=== PATIENT | female | born 1945 | race Caucasian/White ===

== ENCOUNTER 2017-04-10 20:45 | Inpatient (IN) | payer MEDICARE ==
[~2017-04-10 20:45] MED LIST: ASPIRIN81 MG PO; BYSTOLIC5 MG PO; CATAPRES0.1 MG PO; CELEXA20 MG PO; COLACE100 MG PO; FLUTICASONE PRO16 GM NS; IPRAT-ALBUT 0.5-3 ML UPD; LANTUS INSULIN10 ML SC; LEVAQUIN750 MG PO; LISINOPRIL2.5 MG PO; NORVASC5 MG PO; OMNICEF300 MG PO; PLAVIX75 MG PO; PLETAL50 MG PO; PROTONIX40 MG PO; PULMICORT0.5 MG/21 INH; SINGULAIR10 MG PO; STERAPRED 5MG 125 MG PO; WELLBUTRIN SR150 MG PO
[2017-04-10 21:33] LABS: APPEARANCE CLEAR (CLEAR); COLOR YELLOW (YELLOW); NITRITE NEGATIVE (NEGATIVE); SPECIFIC GRAVITY 1.015 (1.005-1.020)
[2017-04-10 21:34] LABS: BILIRUBIN NEGATIVE (NEGATIVE); GLUCOSE NEGATIVE (NEGATIVE); KETONE NEGATIVE (NEGATIVE); PROTEIN 1+ mg/dL (NEGATIVE); UROBILINOGEN NORMAL (NORMAL)
[2017-04-10 21:47] LABS: BASOPHILS 0 % (0-2); EOSINOPHILS 0.1 % (0-7); HEMATOCRIT 40.8 % (36.0-48.0); HEMOGLOBIN 12.6 g/dL (12-16); IMMATURE GRANULOCYTES 0.4 % (0-5); LYMPHOCYTES 3.8 % (15-50); MCH 28.7 pg (26.0-34.0); MCHC 30.9 g/dL (31.0-37.0); MCV 92.9 fL (80.0-100.0); MEAN PLATELET VOLUME 11.4 fL (7.4-10.4); MONOCYTES 4.8 % (2-11); NEUTROPHILS 90.9 % (40-80); PLATELET COUNT 207 10x3/uL (130-400); RBC 4.39 10x6/uL (4.00-5.40); RDW 13.4 % (11.5-14.5); WBC 7.2 10x3/uL (4.8-10.8)
[2017-04-10 22:04] LABS: ALBUMIN 3.4 g/dL (3.4-5.0); ANION GAP 10.1 mmol/L (8-16); BILIRUBIN - TOTAL 0.19 mg/dL (0.2-1.3); CALCIUM 9.2 mg/dL (8.5-10.1); CARBON DIOXIDE 29.2 mmol/L (21.0-32.0); MAGNESIUM - SERUM 1.7 mg/dL (1.8-2.4); POTASSIUM - SERUM 4.3 mmol/L (3.5-5.1); PROTEIN - SERUM 7.2 g/dL (6.4-8.2)
[2017-04-11] VITALS (7 sets, daily range): BP systolic 122–157; BP diastolic 41–64; BMI 33.1
--- NOTE | 2017-04-11 06:44 | NUR ---
NO CHANGES FROM PREVIOUS ASSESSMENT, CALL LIGHT IN REACH. FAMILY AT BEDSIDE.
--- NOTE | 2017-04-11 08:53 | NUR ---
ASSESSMENT DONE. DENIES NEEDS.
--- NOTE | 2017-04-11 10:31 | NUR ---
RESTS WITH EYES CLOSED. RESP UL ON . CALL LIGHT IN REACH. WILL CONT. PLAN OF CARE.
[2017-04-11] MEDS ORDERED: CELEXA20 MG PO (15:04)
[2017-04-11] MEDS ORDERED: TOUJEO SOL300 UNIT/1 SC (15:11)
[2017-04-11 16:05] LABS: BASOPHILS 0.1 % (0-2); EOSINOPHILS 0 % (0-7); HEMOGLOBIN 12.9 g/dL (12-16); IMMATURE GRANULOCYTES 0.4 % (0-5); LYMPHOCYTES 2.7 % (15-50); MCH 28.7 pg (26.0-34.0); MCHC 31.5 g/dL (31.0-37.0); MCV 91.3 fL (80.0-100.0); MEAN PLATELET VOLUME 11.7 fL (7.4-10.4); MONOCYTES 10.4 % (2-11); NEUTROPHILS 86.4 % (40-80); PLATELET COUNT 226 10x3/uL (130-400); RBC 4.49 10x6/uL (4.00-5.40); RDW 13.5 % (11.5-14.5); WBC 7.1 10x3/uL (4.8-10.8)
[2017-04-11 16:25] LABS: ALBUMIN 3.3 g/dL (3.4-5.0); ANION GAP 13.6 mmol/L (8-16); BILIRUBIN - TOTAL 0.13 mg/dL (0.2-1.3); CALCIUM 9.3 mg/dL (8.5-10.1); CARBON DIOXIDE 29.1 mmol/L (21.0-32.0); POTASSIUM - SERUM 3.7 mmol/L (3.5-5.1); PROTEIN - SERUM 7.7 g/dL (6.4-8.2)
[2017-04-11 16:28] LABS: CREATININE - SERUM 1.5 mg/dL (0.6-1.3)
--- NOTE | 2017-04-11 17:37 | NUR ---
WITHOUT CHANGES OR DISTRESS NOTED AT THIS TIME. DENIES NEEDS.
--- NOTE | 2017-04-11 19:36 | NUR ---
SPOKE WITH ANGELLA FLORES, NURSE YACHT RIGGER FOR DR ORDAZ, ORDER GIVE FOR TYLENOL FOR PTS C/O BURGESS.
--- NOTE | 2017-04-11 19:39 | NUR ---
TYLENOL 500 MG GIVEN FOR C/O HEAD ACHE, RATES PAIN AT A 6 ON PAIN SCALE.
[2017-04-12] VITALS: BP 136/42
--- NOTE | 2017-04-12 02:42 | NUR ---
RESTING WITH EYES CLOSED, RESPERATIONS EVEN, NO S/S DISTRESS NOTED.
[2017-04-12 04:04] VITALS: BP 119/47
--- NOTE | 2017-04-12 05:00 | NUR ---
PT RESTING IN BED WITH NO DISTRESS. NO NEEDS VOICED. CPOC.
[2017-04-12 05:58] LABS: BASOPHILS 0 % (0-2); EOSINOPHILS 0 % (0-7); HEMATOCRIT 40.1 % (36.0-48.0); HEMOGLOBIN 12.5 g/dL (12-16); IMMATURE GRANULOCYTES 0.5 % (0-5); LYMPHOCYTES 11.1 % (15-50); MCH 28.7 pg (26.0-34.0); MCHC 31.2 g/dL (31.0-37.0); MCV 92.2 fL (80.0-100.0); MEAN PLATELET VOLUME 11.8 fL (7.4-10.4); MONOCYTES 12.4 % (2-11); PLATELET COUNT 226 10x3/uL (130-400); RBC 4.35 10x6/uL (4.00-5.40); RDW 13.7 % (11.5-14.5); WBC 6.1 10x3/uL (4.8-10.8)
[2017-04-12 06:22] LABS: ANION GAP 11.4 mmol/L (8-16); BILIRUBIN - TOTAL 0.1 mg/dL (0.2-1.3); CALCIUM 9.2 mg/dL (8.5-10.1); CARBON DIOXIDE 32.3 mmol/L (21.0-32.0); CREATININE - SERUM 1.4 mg/dL (0.6-1.3); POTASSIUM - SERUM 3.7 mmol/L (3.5-5.1)
[2017-04-12 07:42] VITALS: BP 128/39
[2017-04-12 10:14] VITALS: BMI 32.9
[2017-04-12 11:23] VITALS: BP 134/51
[2017-04-12 16:03] VITALS: BP 159/53
--- NOTE | 2017-04-12 18:00 | NUR ---
ALERT AND ORIENTED X4. SHOWER COMPLETE. REFUSE TELEMETRY. BEEN SINUS RHTHYM SINCE ADMITTED. DENIES PAIN. SOB MANAGED WITH UPDRAFT TREATMENTS AND OXYGEN THERAPY. DENIES ANY NEEDS. CONTINUE PLAN OF CARE AND SAFETY PRECAUTIONS.
[2017-04-12 19:00] VITALS: BP 148/57
--- NOTE | 2017-04-12 19:31 | NUR ---
PT RESTING IN BED. C/O A HEADACHE. PT ALSO C/O BEING THIRSTY AND HUNGRY. WILL GET PT NOURISHMENT AND FOOD. PT WATCHING TV. PT DENIES ANY OTHER NEEDS. NO S/S OF DISTRESS. WILL CPOC
--- NOTE | 2017-04-12 21:59 | NUR ---
PT UP TO RESTROOM WITH NO ASSISTACE. GAIT STEADY. PT REFUSING SCD. EDUCATED PT IN REASON FOR SCD AND PT SAID MAYBE ILL DO IT IN THE MORNING BUT NOT TONIGHT. PT DENIES ANY NEEDS. NO S/S OF DISTRESS. WILL CPOC
[2017-04-13] VITALS: BP 128/47
[2017-04-13 04:00] VITALS: BP 136/64
[2017-04-13 04:16] LABS: BASOPHILS 0 % (0-2); EOSINOPHILS 0 % (0-7); HEMATOCRIT 40.5 % (36.0-48.0); HEMOGLOBIN 12.4 g/dL (12-16); IMMATURE GRANULOCYTES 0.2 % (0-5); LYMPHOCYTES 3.8 % (15-50); MCH 28.3 pg (26.0-34.0); MCHC 30.6 g/dL (31.0-37.0); MCV 92.5 fL (80.0-100.0); MEAN PLATELET VOLUME 11.9 fL (7.4-10.4); MONOCYTES 2.7 % (2-11); NEUTROPHILS 93.3 % (40-80); PLATELET COUNT 244 10x3/uL (130-400); RBC 4.38 10x6/uL (4.00-5.40); RDW 13.7 % (11.5-14.5); WBC 5.8 10x3/uL (4.8-10.8)
[2017-04-13 04:47] LABS: ALBUMIN 3.1 g/dL (3.4-5.0); ALKALINE PHOSPHATASE 63 U/L (46-116); ALT (SGPT) 18 U/L (10-68); BILIRUBIN - TOTAL 0.08 mg/dL (0.2-1.3); CALC OSMOLALITY 295 mosm/kg (275-300); CALCIUM 9.5 mg/dL (8.5-10.1); CARBON DIOXIDE 30.6 mmol/L (21.0-32.0); CHLORIDE - SERUM 100 mmol/L (98-107); CREATININE - SERUM 1.3 mg/dL (0.6-1.3); GLUCOSE 234 mg/dL (74-106); PHOSPHOROUS 3.6 mg/dL (2.5-4.9); POTASSIUM - SERUM 4.7 mmol/L (3.5-5.1); PROTEIN - SERUM 7.2 g/dL (6.4-8.2); SODIUM 139 mmol/L (136-145); TROPONIN-I < 0.017 ng/mL (0.000-0.060); UREA NITROGEN 41 mg/dL (7-18); eGFR NON AFRICAN AMERICAN 43 mL/min (90-120)
--- NOTE | 2017-04-13 06:48 | NUR ---
PT LAYING IN BED ON RIGHT SIDE. PT SLEPT SOUNDLY THROUGH OUT NIGHT FSBS 199 WILL GIVE 4 UNITS. PT DENIES ANY NEEDS. NO S/S OF DISTRESS. WILL CPOC
[2017-04-13 07:43] VITALS: BP 152/44
--- NOTE | 2017-04-13 07:45 | NUR ---
AM ROUNDS COMPLETED. INTRODUCED MYSELF TO PT PRIMARY RN FOR TODAYS SHIFT. PT A&O SITTING UP IN BED RESTING QUIETLY. PT STATES "IM HOPING TO LEAVE TODAY" WILL CHECK FOR ORDERS. RR NONLABORED ON RA AT THIS TIME, PT STATES SHE ONLY WEARS OXYGEN AT NIGHT TO SLEEP WITH. CL IN REACH, BED IN LOWEST, SIDE RAILS X2. WILL CPOC.
--- NOTE | 2017-04-13 11:28 | NUR ---
FSBS 295 PT REC'D 10 UNITS PER SS INSULIN. PT SITTING UP ON EDGE OF BED WAITING FOR LUNCH. PROVIDED PT WITH ICED LEMON UPPER SKAGIT SODA REQUESTED. PT DENIES ANY CURRENT PAIN OR NEEDS. CL IN REACH. WILL CPOC.
[2017-04-13 11:36] VITALS: BP 121/45
[2017-04-13] MEDS ORDERED: FLUTICASONE PRO16 GM NASAL (15:02)
[2017-04-13] MEDS ORDERED: SINGULAIR10 MG PO (15:02)
[2017-04-13] MEDS ORDERED: FLORAJEN3 CAPS460 MG PO (15:02)
[2017-04-13] MEDS ORDERED: PULMICORT0.5 MG/21 UPD (15:03)
[2017-04-13] MEDS ORDERED: TESSALON PERLE100 MG PO (15:03)
[2017-04-13] MEDS ORDERED: MUCINEX DM ER1 EAC1 PO (15:03)
[2017-04-13] MEDS ORDERED: IPRAT-ALBUT 0.5-3 ML INH (15:04)
[2017-04-13] MEDS ORDERED: BROVANA15 MCG/2 M INH (15:04)
[2017-04-13] MEDS ORDERED: OMNICEF300 MG PO (15:05)
[2017-04-13] MEDS ORDERED: PREDNISONE10 MG PO (15:05)
[2017-04-13] MEDS ORDERED: LASIX20 MG PO (15:05)
[2017-04-13 15:09] VITALS: BP 155/55
--- NOTE | 2017-04-13 15:19 | NUR ---
PT IS BEING DISCHARGED TODAY AND DOES WANT A FLU SHOT WILL GET ORDER OBTAINED.
--- NOTE | 2017-04-13 16:41 | NUR ---
Patient Name: UMM RUCKER Admission Status: ER Accout number: [id number] Admission Date: 04-11-2017 : 1945 Admission Diagnosis: Attending: MYRA ORDAZ Current LOS: 2 Anticipated DC Date: 04-13-2017 Planned Disposition: Home with Home Health Primary Insurance: MEDICARE A & B Discharge Planning Comments: CM MET WITH PATIENT AND HER GRANDAUGHTER, JASON KRAMER, WHO LIVES WITH THE PATIENT, TO DISCUSS DISCHARGE PLANNING AND NEEDS. SHE STATED THAT HER GRAND DAUGHTER WILL BE TAKING HER HOME. SHE SAID THAT SHE HAS HOME OXYGEN FOR NIGHT USE AND THE LARGE TANKS THAT ARE PULLED BEHIND HER. SHE SAID THAT SHE THOUGHT SHE NEEDED PORTABLE OXYGEN PER HER DOCTOR. SHE WAS TESTED AND HER SATS WERE 84% ON ROOM AIR INCREASING TO 93-94% ON 2L N/C. THIS WAS DISCUSSED WITH DR ORDAZ AND ORDER RECEIVED TO SET HER UP WITH PORTABLE OXYGEN. [facility] IS HER CURRENT PROVIDER AND WILL GLADLY PROVIDE IT FOR HER. SHE HAD AN ORDER TO GO HOME WITH HOME HEALTH. AT FIRST SHE WAS VERY RELUNCTANT TO THIS, BUT AFTER TALKING WIHT HER GRANDDAUGHTER, PATIENT CHOICE FORM SIGNED FOR [facility] (PT HAS HAD THEM IN THE PAST). SPOKE WITH JANIA AT [employer] AND INFORMATION FAXED. THEY WILL CALL PATIENT TO SET UP TIME TO COME OUT. PT DENIES NEED FOR ANY OTHER EQUIPMENT OR ANY OTHER SERVICES. WILL FOLLOW UNTIL LEAVES THE BUILDING. [employer]: Annette Lu Is the patient Alert and Oriented? Yes * How many steps to enter\exit or inside your home? 2,RAILS * PCP DR MYRA ORDAZ * Pharmacy [facility] [address] * Preadmission Environment Home with Family * ADLs Independent * Equipment Glucometer Nebulizer Oxygen Rolling Walker * List name and contact numbers for known caregivers / representatives who currently or will assist patient after discharge: ELIAS AMOR, COUSIN, OR JASON KRAMER, GRAND DAUGHTER, (GRANDDAUGHTER LIVES WITH PATIENT) * Community resources currently utilized None * Please name any agencies selected above. [facility] PROVIDED HOME OXYGEN * Additional services required to return to the preadmission environment? Yes * Can the patient safely return to the preadmission environment? Yes * Has this patient been hospitalized within the prior 30 days at any hospital? No
--- NOTE | 2017-04-13 18:23 | NUR ---
D/C PTS L.FA PIV WITH CATH TIP FULLY INTACT. DISCHARGE TEACHING PROVIDED AND PAPERS SIGNED. PT VERBALIZED UNDERSTANDING AND DENIES ANY QUESTIONS OR CONCERNS. PT REC'D FLU SHOT REQUESTED FOR THIS FLU SEASON TO [facility]. PT HAS BELONGINGS COLLECTED AND GRANDDAUGHTER AT BEDSIDE FOR TRANSPORTATION, NOW JUST AWAITNG PORTABLE OXYGEN TANK BEFORE SHE CAN LEAVE. CL IN REACH. WILL CTM.
--- NOTE | 2017-04-13 18:32 | NUR ---
CALLED [facility] TO CHECK ON THE STATUS OF THIS PATIENTS PORTABLE OXYGEN SO THAT SHE COULD GO HOME. THE LADY WHO ANSWERED AT THE SERVICE ([employer] IS NOT WELL UNDERSTOOD BY THIS PERSON) STATED THE ORDER WAS STILL IN PROCESSING AND THAT I WOULD NEED TO SPEAK TO [facility] SUPPORT TO SEE ABOUT THE ORDER. SHE GAVE ME THE NUMBER OF [phone] AND STATED SHE WOULD TRANSFER ME. I CLARIFIED WITH HER THAT SHE WAS SENDING ME TO [facility] TO DISCUSS THE OXYGEN ORDER WITH THEM AND SHE STATED YES. A CIGARETTE STAMPER CAME ON THE LINE, I ASKED FOR HER NAME FOR MY RECORDS, AND SHE DID NOT GIVE ME HER NAME. SHE SAID THAT SHE WAS GOING TO HAVE TO SEND IT JONES THROUGH PROCESSING. SHE COULD NOT TELL ME HOW LONG THIS WAS GOING TO TAKE. SHE PLACED ME ON HOLD TO CALL AND "FIND OUT". SHE CAME BACK IN AND TALKED TO THE [facility] AND IT WILL BE ANOTHER HOUR BEFORE THEY COULD BE THERE HERE. I WENT TO THE ROOM AND EXPLAINED THIS TO THE PATIENT. SHE STATED THAT HER GRANDDAUGHTER WOULD BE BACK TO PICK HER UP WHEN THE OXYGEN IS HERE. I HAVE GREATLY APOLOGIZED TO HER FOR THIS AND SHE STATED THAT SHE UNDERSTOOD IT WAS NOT OUR FAULT. A NOTE HAS BEEN LEFT FOR HER NURSE.
[2017-04-13 19:00] VITALS: BP 138/61
--- NOTE | 2017-04-13 19:52 | NUR ---
PT SITTING UP IN CHAIR WITH DAUGHTER AT BEDSIDE.PT WAITING TO BE DISCHARGED. WAITING ON PORTABLE O2. PT DENIES ANY QUESTIONS OR CONCERNS ABOUT DISCHARGE.PT DENIES ANY NEEDS. NO S/S OF DISTRESS. WILL CPOC
--- NOTE | 2017-04-13 22:07 | NUR ---
REASSESSED O2 SATURATION ON ROOM AIR 94%. TESTED WHILE TRYING TO GET A HOLD OF [facility], WAS UNABLE TO TALK TO AN ACTUAL PERSON. PT SAYS SHE HAS OXYGEN AT HOME AND WANTS TO GO HOME. WILL DC AT THIS TIME.
--- NOTE | 2017-04-13 22:21 | NUR ---
PT DIDNT WANT TO WAIT FOR PORTABLE O2 ANYMORE. PT SAT. 94% RA. PT AMBULATED TO NURSES STATION UPSET. PT TAKEN TO VEHICLE VIA WHEELCHAIR. PT DENIES ANY NEEDS. NO S/S OF DISTRESS. NO QUESTIONS OR CONCERNS. WILL CPOC
--- NOTE | 2017-04-14 11:36 | NUR ---
RECIEVED AN EMAIL FROM LOLITA DAS, ULTRASONIC CLEANER WITH [employer]. SHE HAS REQUESTED FOR ME TO CALL HER IN REGARDS TO THE PATIENTS DISCHARGE SETUP. LEFT ME THE NUMBER [phone]. WHEN CALLED BACK, SHE STATED THAT THEY WENT TODAY TO DELIVER THE PATIENT OXYGEN AND THE PATIENT REFUSED IT AND TOLD THEM TO REMOVE ALL OF THEIR EQUIPMENT FROM HER HOME THAT SHE DOESN'T WANT TO USE THEM. SHE EXPRESSED HER CONCERN IN REGARDS TO THE OXYGEN. I EXPLAINED THE WHOLE EXPERIENCE I HAD CALLING AFTER HOURS, WHAT WAS SAID, WHO I HAD TO TAKE CARE OF AND THAT THE END RESULT WAS THEY WERE SUPPOSE TO BE HERE IN AN HOUR OR LESS. THEN PER THE NURSES NOTE, SHE LEFT WITHOUT THE OXYGEN BEING DELIVERED BECAUSE 1.5 HOURS LATER IT WAS STILL NOT HERE. SHE PLACED ME ON HOLD AND AFTER 7 MINUTES CAME BACK ON THE LINE. PER HER THE ASSISTANT MANAGER QUALITY MANAGEMENT CALLED HER AT 1912 AND THEY TRIED TO GET CREDIT CARD INFORMATION FROM HER AND SHE REFUSED TO HAVE THE OXYGEN DELIVERED. SHE STATED THAT THE PATIENT HAS PORTABILITY AT HOME WELL THE ETANKS AT HOME FOR BACK-UP. SHE DID NOT WANT TO GO OUT AND COMMUNITY LIAISON THE EQUIPMENT WITHOUT SEEING ABOUT HER SATS, BUT SHE STATED THE PATIENT SAID SHE DOES NOT EVEN USE THE OXYGEN SHE HAS OUT AT THE HOUSE. SHE THEN PLACED ME BACK ON HOLD TO CONFIRM HER EQUIPMENT. SHE SAID THAT THE PATIENT GOT PORTABILITY ON DECEMBER 31, 2016. SHE THEN STATED THAT SHE HAS EXPLAINED THAT SHE TOLD THE PATIENT SHE COULD NOT COMMUNITY LIAISON THE OXYGEN WITHOUT A PHYSICIAN ORDER TO DO SO. I EXPLAINED THAT I DID NOT FEEL, GIVEN HER NEED, THAT DR ORDAZ WOULD GIVE ME THE ORDER TO COMMUNITY LIAISON THE OXYGEN. I EXPLAINED I WOULD SPEAK TO HIM ABOUT THIS SITUTATION. SHE THANKED ME FOR MY TIME.
--- NOTE | 2017-04-14 13:44 | NUR ---
JUST GOT OFF THE PHONE WITH DELIVERY FOR [facility]. HE STATED THAT HE HAS COME TO THE HOSPITAL TO DELIVER AND THE PATIENT WAS NOT HERE. HE STATED THAT THE TICKET SAID SHE WAS HERE AT THE HOSPITAL. I EXPLAINED THAT THE PATIENT WENT HOME LAST NIGHT AROUND 2230 AFTER SHE HAD BEEN WAITING FOR THE OXYGEN DELIVERY AND THAT I HAD HAD THIS CONVERSATION WITH LOLITA DAS PREVIOUSLY TODAY AND WAS TOLD THAT THE PATIENT REFUSED THE OXYGEN, AND WANTED THE EQUIPMENT PICKED UP. EXPLAINED THAT PER LOLITA SHE ALREADY HAD THE PORTABLE. THE DELIVERY SOHAM SAID NOTHING AND JUST GOT THE ADDRESS WHEN SHE CURRENTLY WAS TO MAKE HIS DELIVERY. HE STATED THAT HE WOULD ATTEMPT TO CONTACT THE PATIENT ABOUT THE DELIVERY.
--- NOTE | 2017-04-18 10:43 | NUR ---
04/18@9935, RECEIVED A CALL FROM JANIA WITH [facility]. SHE STATED THAT THEY HAVE MADE MULTIPLE ATTEMPTS TO ADMIT THE PATIENT AND THEY ARE NOT HAVING ANY LUCK LOCATING THE PATIENT. SHE SAID THEY HAVE LEFT HER CARDS ON HER DOOR AND MESSAGES.
--- NOTE | 2017-05-17 10:49 | DS ---
PATIENT:UMM RUCKER :[birth year] MEDICAL RECORD: [id number] DISCHARGE SUMMARY ADMISSION DATE: 04/11/17 DISCHARGE DATE: 04/13/17 This is a discharge dated 04/13/2017 from the inpatient hospital. DISCHARGE DIAGNOSES: 1. Community-acquired pneumonia. 2. COPD with acute exacerbation. 3. Chronic hypoxic respiratory failure. 4. Altered mental status. 5. Diabetes. 6. Weakness. 7. CO2 retention. 8. Hypertension. 9. Coronary artery disease. 10. Chronic diastolic congestive heart failure. 11. Hyperlipidemia. 12. Gastroesophageal reflux disease. CONSULT ON THIS HOSPITALIZATION: Pulmonary with Franco Grace MD HOSPITAL COURSE: Full H&P is located elsewhere on the chart on this 72-year-old female who was admitted for treatment of community-acquired pneumonia. She was started on Rocephin for antibiotic coverage. Electrolytes were managed by protocol. She remained on supplemental oxygen, which she was on at home. Fingerstick blood sugars were monitored throughout her hospital stay with appropriate adjustment in medications as needed. She was seen in consult by Dr. Grace from pulmonary. She was on DuoNeb for respiratory support and IV steroids. She had Brovana and budesonide nebulized as well with antitussive and mucokinetic agents for symptom relief. Her symptoms improved. Imaging improved as well. She was considered stable for discharge on 04/13/2017. DISCHARGE MEDICATIONS: As per discharge medication reconciliation. DISCHARGE DISPOSITION: The patient is discharged home. She will continue her current diet and level of activity. She will complete 7-day antibiotic treatment with Rocephin changed to Omnicef. Steroids were changed to oral with plans for steroid taper. She will continue current diet and level of activity, and will follow up with primary care in one week and will be seen by [facility] house calls. She will follow up with specialists as directed. At least 30 minutes was spent in this discharge activity. TRANSINT:[id number] Voice Confirmation ID: [id number] DOCUMENT ID: [id number] Dictated By: STEPHANY BRIGHT I have interviewed/examined the above patient and agree with these documented findings. DISCHARGE SUMMARY REPORT [id number] UMM RUCKER MICHAEL MD at 1358 at 1049 CC: [id number] DICTATION DATE: 05/08/17 1527 HIDE DROPPER: 05/08/17 1723 DIS IN 04/13/17 [place] [id number] [place] [id number]
== END 2017-04-13 22:26 | disposition home health service (06) | DRG 291 ==
LOC: D.ER 20:45 → D.M2 04-11 00:37
PROVIDERS: Internal Medicine Pulmonary Disease; Nurse Practitioner Family; ADMIT Family Medicine
PROC: 0T9B70Z Drainage of Bladder with Drainage Device, Via Natural or Artificial Opening (ICD-10-PCS; principal; 2017-04-11)
DX: I11.0 Hypertensive heart disease with heart failure (principal); J18.9 Pneumonia, unspecified organism; J44.0 Chronic obstructive pulmonary disease with (acute) lower respiratory infection; E87.2 Acidosis; J44.1 Chronic obstructive pulmonary disease with (acute) exacerbation; I50.33 Acute on chronic diastolic (congestive) heart failure; E11.65 Type 2 diabetes mellitus with hyperglycemia; E11.21 Type 2 diabetes mellitus with diabetic nephropathy; Z79.4 Long term (current) use of insulin; I25.10 Atherosclerotic heart disease of native coronary artery without angina pectoris; Z99.81 Dependence on supplemental oxygen; K21.9 Gastro-esophageal reflux disease without esophagitis; E78.5 Hyperlipidemia, unspecified; I08.1 Rheumatic disorders of both mitral and tricuspid valves; J30.9 Allergic rhinitis, unspecified; E66.9 Obesity, unspecified; Z68.33 Body mass index [BMI] 33.0-33.9, adult; Z95.5 Presence of coronary angioplasty implant and graft; Z87.891 Personal history of nicotine dependence

== ENCOUNTER → 2017-06-01 14:46 | Outpatient (CLI) | payer MEDICARE ==
[~2017-06-01 14:46] MED LIST changes: +BROVANA15 MCG/2 M INH; +FLORAJEN3 CAPS460 MG PO; +FLUTICASONE PRO16 GM NASAL; +IPRAT-ALBUT 0.5-3 ML INH; +LASIX20 MG PO; +MUCINEX DM ER1 EAC1 PO; +PREDNISONE10 MG PO; +PULMICORT0.5 MG/21 UPD; +TESSALON PERLE100 MG PO; +TOUJEO SOL300 UNIT/1 SC
[2017-06-01 18:49] LABS: APPEARANCE CLEAR (CLEAR); BILIRUBIN NEGATIVE (NEGATIVE); COLOR YELLOW (YELLOW); GLUCOSE NEGATIVE (NEGATIVE); KETONE NEGATIVE (NEGATIVE); NITRITE POSITIVE (NEGATIVE); PROTEIN NEGATIVE (NEGATIVE); UROBILINOGEN NORMAL (NORMAL)
[2017-06-01 18:50] LABS: BACTERIA MANY /hpf (NONE SEEN); RED CELLS - URINE OCC /hpf (0-5); WHITE CELLS - URINE 0-5 /hpf (0-5)
== END | disposition home or self-care (01) ==
LOC: D.LABREF 14:46
PROVIDERS: Family Medicine
DX: N39.0 Urinary tract infection, site not specified (principal)

== ENCOUNTER 2017-08-10 13:48 | Emergency (ER) | payer MEDICARE ==
[2017-08-10 14:38] LABS: BASOPHILS 0.2 % (0-2); EOSINOPHILS 0.3 % (0-7); HEMATOCRIT 41.8 % (36.0-48.0); HEMOGLOBIN 12.7 g/dL (12-16); LYMPHOCYTES 22.4 % (15-50); MCH 27.3 pg (26.0-34.0); MCHC 30.4 g/dL (31.0-37.0); MCV 89.9 fL (80.0-100.0); MEAN PLATELET VOLUME 11.1 fL (7.4-10.4); MONOCYTES 14.7 % (2-11); NEUTROPHILS 61.4 % (40-80); PLATELET COUNT 237 10x3/uL (130-400); RBC 4.65 10x6/uL (4.00-5.40); RDW 15.3 % (11.5-14.5); WBC 6.3 10x3/uL (4.8-10.8)
[2017-08-10 14:59] LABS: ALBUMIN 3.5 g/dL (3.4-5.0); ALKALINE PHOSPHATASE 70 U/L (46-116); ALT (SGPT) 17 U/L (10-68); CALC OSMOLALITY 282 mosm/kg (275-300); CALCIUM 9.4 mg/dL (8.5-10.1); CARBON DIOXIDE 28.9 mmol/L (21.0-32.0); CHLORIDE - SERUM 100 mmol/L (98-107); CREATININE - SERUM 1.5 mg/dL (0.6-1.3); POTASSIUM - SERUM 4.4 mmol/L (3.5-5.1); PROTEIN - SERUM 7.6 g/dL (6.4-8.2); SODIUM 138 mmol/L (136-145); UREA NITROGEN 26 mg/dL (7-18); eGFR NON AFRICAN AMERICAN 36 mL/min (90-120)
[2017-08-10 15:00] LABS: GLUCOSE 129 mg/dL (74-106)
[2017-08-10 15:07] LABS: CREATINE KINASE 51 UL (21-215); PRO BNP 284 pg/mL (0-125)
[2017-08-10 15:12] LABS: TROPONIN-I < 0.017 ng/mL (0.000-0.060)
== END 2017-08-10 18:22 | disposition home or self-care (01) ==
LOC: D.ER 13:48
PROVIDERS: Emergency Medicine
DX: J44.1 Chronic obstructive pulmonary disease with (acute) exacerbation (principal); R06.00 Dyspnea, unspecified; R09.02 Hypoxemia; Z86.79 Personal history of other diseases of the circulatory system; F17.200 Nicotine dependence, unspecified, uncomplicated; E11.9 Type 2 diabetes mellitus without complications; Z79.4 Long term (current) use of insulin; I10 Essential (primary) hypertension; I44.7 Left bundle-branch block, unspecified

== ENCOUNTER 2019-01-01 18:24 | Inpatient (IN) | payer MEDICARE ==
[~2019-01-01] VITALS: Ht 157.5 cm; Wt 84.4 kg
[2019-01-01] MEDS ORDERED: SODIUM CL 0.91000 ML IV (19:27)
[2019-01-01 21:12] VITALS: BP 165/42
[2019-01-01 21:16] LABS: APPEARANCE CLEAR (CLEAR); COLOR STRAW (YELLOW); NITRITE NEGATIVE (NEGATIVE); SPECIFIC GRAVITY 1.015 (1.005-1.020)
[2019-01-01 21:17] LABS: BACTERIA FEW /hpf (NONE SEEN); BILIRUBIN NEGATIVE (NEGATIVE); EPITHELIAL CELLS 0-5 /hpf (0-5); GLUCOSE NEGATIVE (NEGATIVE); KETONE NEGATIVE (NEGATIVE); PROTEIN 3+ mg/dL (NEGATIVE); RED CELLS - URINE 0-5 /hpf (0-5); UROBILINOGEN NORMAL (NORMAL); WHITE CELLS - URINE 0-5 /hpf (0-5)
[2019-01-01 21:18] LABS: AMORPHOUS SEDIMENT <1+ /lpf (NONE SEEN); MUCUS <1+ /lpf (NONE SEEN)
[2019-01-01 22:00] LABS: BASOPHILS 0.2 % (0-2); EOSINOPHILS 0.6 % (0-7); HEMATOCRIT 39.3 % (36.0-48.0); HEMOGLOBIN 12.7 g/dL (12-16); IMMATURE GRANULOCYTES 0.4 % (0-5); LYMPHOCYTES 25.4 % (15-50); MCH 28.6 pg (26.0-34.0); MCHC 32.3 g/dL (31.0-37.0); MCV 88.5 fL (80.0-100.0); MEAN PLATELET VOLUME 11.3 fL (7.4-10.4); MONOCYTES 9.3 % (2-11); NEUTROPHILS 64.1 % (40-80); PLATELET COUNT 194 10x3/uL (130-400); RBC 4.44 10x6/uL (4.00-5.40); RDW 14.2 % (11.5-14.5)
[2019-01-01 22:22] LABS: ALBUMIN 3.2 g/dL (3.4-5.0); ANION GAP 12.1 mmol/L (8-16); BILIRUBIN - TOTAL 0.25 mg/dL (0.2-1.3); CARBON DIOXIDE 31.1 mmol/L (21.0-32.0); CREATININE - SERUM 1.3 mg/dL (0.6-1.3); POTASSIUM - SERUM 4.2 mmol/L (3.5-5.1); PROTEIN - SERUM 7.1 g/dL (6.4-8.2); THYROID STIMULATING HORMONE 2.12 uIU/mL (0.36-3.74)
[2019-01-02] VITALS (7 sets, daily range): BP systolic 145–197; BP diastolic 42–75; BMI 34.1; BMI 34.0
--- NOTE | 2019-01-02 01:35 | NUR ---
RECIEVED AT [address] ORDAZ OFFICE.ARRIVED TO FLOOR IN W/C. TRANSFERED SELF TO BED. GRANDDAUGHTER WITH HER. ALERT AND ORIENTED X4. IV STARTED TO LEFT FA WITH ATTEMPTS X1 WITH 22GA. NS INFUSING AT 30CC/HR PER ORDERS/ TELEMETRY PLACED AND F/C IN PLACE PER ORDERS. 1800 CC REMOVED AT 2099. ALL ORDERS WRITTEN AND NOTED ON AUG. DENIES ANY NEEDS AT THIS TIME.
[2019-01-02 06:06] LABS: BASOPHILS 0 % (0-2); EOSINOPHILS 0.7 % (0-7); HEMATOCRIT 37.6 % (36.0-48.0); HEMOGLOBIN 12.1 g/dL (12-16); IMMATURE GRANULOCYTES 0.5 % (0-5); MCH 28.3 pg (26.0-34.0); MCHC 32.2 g/dL (31.0-37.0); MCV 88.1 fL (80.0-100.0); MEAN PLATELET VOLUME 11.6 fL (7.4-10.4); MONOCYTES 12.1 % (2-11); NEUTROPHILS 64.7 % (40-80); PLATELET COUNT 207 10x3/uL (130-400); RBC 4.27 10x6/uL (4.00-5.40); RDW 14.4 % (11.5-14.5)
[2019-01-02 06:22] LABS: ANION GAP 9.6 mmol/L (8-16); CALCIUM 9.2 mg/dL (8.5-10.1); CARBON DIOXIDE 34.4 mmol/L (21.0-32.0); CREATININE - SERUM 1.2 mg/dL (0.6-1.3); MAGNESIUM - SERUM 1.8 mg/dL (1.8-2.4); PHOSPHOROUS 3.5 mg/dL (2.5-4.9)
--- NOTE | 2019-01-02 07:19 | NUR ---
RESTING, NO DISTRESS NOTED. RESP EVEN AND UNLABORED. CL IN REACH.
--- NOTE | 2019-01-02 13:02 | NUR ---
SHOWER THIS AM PER NURSING. NO C/O PAIN. RESP EVEN AND UNLABORED. CL IN REACH.
--- NOTE | 2019-01-02 16:25 | MORECARE ---
CASE MANAGEMENT DISCHARGE SUMMARY PATIENT: UMM RUCKER UNIT: [id number] ADM DATE: 01/01/19 AGE: 73 : [birth year] SEX: F ROOM/BED: D.7688 AUTHOR: MATTY GALLAGHER PHYSICIAN: REFERRING PHYSICIAN: MYRA ORDAZ MD DATE OF SERVICE: 01/02/19 Discharge Plan Patient Name: UMM RUCKER Facility: [facility]:[place] : 1945 Planned Disposition: Home Anticipated Discharge Date: 01/03/19 Discharge Date: Expected LOS: 2 Initial Reviewer: [email or web address] Initial Review Date: 01/02/2019 Generated: 01/02/19 5:25 pm Patient Name: UMM RUCKER Page [id number] at 1625 All edits/amendments must be made on the electronic document DICTATION DATE: 01/02/191624 GRANT SPECIALIST: YUSUF 01/02/19 162 RPT#: [id number] DC DATE: STATUS: ADM IN [facility] [address] [place] [address] END OF REPORT
--- NOTE | 2019-01-02 16:34 | MORECARE ---
CASE MANAGEMENT DISCHARGE SUMMARY PATIENT: UMM RUCKER UNIT: [id number] ADM DATE: 01/01/19 AGE: 73 : 47 SEX: F ROOM/BED: D.5905 AUTHOR: AILEEN,DOC PHYSICIAN: REFERRING PHYSICIAN: MYRA ORDAZ MD DATE OF SERVICE: 01/02/19 Discharge Plan Patient Name: UMM RUCKER Facility: [facility]:[place] : 1945 Planned Disposition: Home Anticipated Discharge Date: 01/03/19 Discharge Date: Expected LOS: 2 Initial Reviewer: [email or web address] Initial Review Date: 01/02/2019 Generated: 01/02/19 5:34 pm Comments DCP- Discharge Planning Updated by [email or web address]: Malik Gomez on 01/02/19 3:[address] Patient Name: UMM RUCKER Admission Status: Elective Accout number: [id number] Admission Date: 01-01-2019 : 1945 Admission Diagnosis: Attending: MYRA ORDAZ Current LOS: 1 Anticipated DC Date: 01-03-2019 Planned Disposition: Home Primary Insurance: [employer] CHOICE PPO MCR ADVANT Discharge Planning Comments: CM MET WITH PT IN ROOM TO DISCUSS DISCHARGE PLANNING AND NEEDS. PT REPORTS LIVING AT HOME INDEPENDENTLY WITH ADULT GRAND DAUGHTER AND 2 YEAR OLD GREAT GRANDSON. PT HAS OXYGEN CONCENTRATOR, NEBULIZER AND WALKER FROM [employer]. PT HAS NO OUTSIDE SERVICES ASSISTING IN THE HOME. CM DISCUSSED AVAILABILITY OF HOME HEALTH, REHAB SERVICES AND MEDICAL EQUIPMENT. PT DENIES DISCHARGE NEEDS, REPORTS HER GRAND DAUGHTER WILL PICK HER UP FOR DISCHARGE HOME. PT PLANS TO DISCHARGE HOME WITH FAMILY, HAS NO ANTICIPATED NEEDS. CM TO FOLLOW AND ASSIST IF NEEDED. Police Sergeant Precinct: Malik Gomez DCPIA - Discharge Planning Initial Assessment Updated by [id number]: Malik Gomez on 01/02/19 4:26 pm * Is the patient Alert and Oriented? Yes * How many steps to enter\exit or inside your home? NONE * PCP DR. ORDAZ * Pharmacy [facility] * Preadmission Environment Home with Family * ADLs Independent * Equipment Nebulizer Oxygen Walker * Other Equipment [facility], MEDICAL EQUIPMENT PROVIDER * List name and contact numbers for known caregivers / representatives who currently or will assist patient after discharge: TOM KRAMER, GRANDDAUGHTER, * Verbal permission to speak to the caregivers and representatives has been obtained from the patient. N/A * Community resources currently utilized None * Please name any agencies selected above. NONE * Additional services required to return to the preadmission environment? No * Can the patient safely return to the preadmission environment? Yes * Has this patient been hospitalized within the prior 30 days at any hospital? No Last DP export: 01/02/19 3:25 p Patient Name: UMM RUCKER Page 19082 at 1634 All edits/amendments must be made on the electronic document DICTATION DATE: 01/02/191633 MEDICAL CLAIMS ANALYST: YUSUF 01/02/191633 RPT#: [id number] DC DATE: STATUS: ADM IN [facility] [address] [place] [address] END OF REPORT
--- NOTE | 2019-01-02 17:02 | NUR ---
NO CHANGE IN ASSESSMENT. FRIENDS VISITING. ALERT ADN ORIENTED. NO C/O PAIN. CL IN REACH.
--- NOTE | 2019-01-02 19:30 | NUR ---
EVENING ROUNDS MADE. PT LAYING IN BED RESTING. C/O CRAMPING IN BLE. DENIES NEED FOR SLEEPING PILL OR PAIN PILL. BS 109 NO COVERAGE NEED. CRACKERS AND SPRITE PROVIDED. RAMIREZ DRAINING BY GRAVITY, STAT LOCK IN PLACE, SIMON URINE NOTED. NORMAL SINUS ON TELE. DENIES FURTHER NEEDS AT THIS TIME. BED LOWERED AND LOCKED. CL IN REACH. WILL CTM.
--- NOTE | 2019-01-02 22:14 | NUR ---
VITALS STABLE. PT TOOK MEDS WITHOUT DIFFICULTY. DENIES PAIN AT THIS TIME. LAYING IN BED RESTING. BREATHING EVEN AND UNLABORED. NO FURTHER CONCERNS AT THIS TIME. FALL PRECAUTIONS IN PLACE. YELLOW GOWN ON. NON SKID SOCKS ON. BED LOWERED AND LOCKED. CL IN REACH. WILL CTM.
[2019-01-03 01:01] VITALS: BP 153/85
[2019-01-03 05:16] VITALS: BP 143/56
[2019-01-03 06:14] LABS: BASOPHILS 0 % (0-2); EOSINOPHILS 0.4 % (0-7); HEMATOCRIT 44.2 % (36.0-48.0); HEMOGLOBIN 14.4 g/dL (12-16); LYMPHOCYTES 22.3 % (15-50); MCH 28.9 pg (26.0-34.0); MCHC 32.6 g/dL (31.0-37.0); MCV 88.8 fL (80.0-100.0); MEAN PLATELET VOLUME 12.3 fL (7.4-10.4); MONOCYTES 13.3 % (2-11); PLATELET COUNT 213 10x3/uL (130-400); RBC 4.98 10x6/uL (4.00-5.40); RDW 14.5 % (11.5-14.5); WBC 4.9 10x3/uL (4.8-10.8)
[2019-01-03 06:48] LABS: ANION GAP 9.6 mmol/L (8-16); CALCIUM 9.8 mg/dL (8.5-10.1); CARBON DIOXIDE 36.2 mmol/L (21.0-32.0); CREATININE - SERUM 1.5 mg/dL (0.6-1.3); MAGNESIUM - SERUM 1.8 mg/dL (1.8-2.4); PHOSPHOROUS 3.5 mg/dL (2.5-4.9); POTASSIUM - SERUM 3.8 mmol/L (3.5-5.1)
[2019-01-03 08:41] VITALS: BP 122/59
[2019-01-03 12:04] VITALS: BP 156/74
[2019-01-03 15:46] VITALS: BP 129/64
--- NOTE | 2019-01-03 19:30 | NUR ---
EVENING ROUNDS MADE. PT LAYING IN BED RESTING. DENIES PAIN AT THIS TIME. NO FURTHER CONCERNS. FALL PRECAUTIONS IN PLACE. BED LOWERED AND LOCKED. CL IN REACH. WILL CTM.
[2019-01-03 20:00] VITALS: BP 141/66
--- NOTE | 2019-01-03 22:03 | NUR ---
VITALS STABLE. PT C/O HEADACHE, TYLENOL GIVEN. BS 167, INSULIN GIVEN. RAMIREZ DRAINING BY GRAVITY, STAT LOCK IN PLACE, SIMON URINE NOTED. DENIES FURTHER NEEDS AT THIS TIME. BED LOWERED AND LOCKED. CL IN REACH. WILL CTM
--- NOTE | 2019-01-03 22:05 | NUR ---
PT UP TO SHOWER ASSISTED BY BRILLIANDEER LOPPER. NO FURTHER CONCERNS AT THIS TIME.
[2019-01-04] VITALS: BP 140/60
[2019-01-04 00:49] VITALS: Ht 157.5 cm; Wt 84.4 kg
[2019-01-04 04:00] VITALS: BP 132/44
[2019-01-04 06:14] LABS: BASOPHILS 0 % (0-2); EOSINOPHILS 0.4 % (0-7); HEMATOCRIT 39.3 % (36.0-48.0); HEMOGLOBIN 12.7 g/dL (12-16); IMMATURE GRANULOCYTES 0.8 % (0-5); LYMPHOCYTES 21.4 % (15-50); MCH 28.5 pg (26.0-34.0); MCHC 32.3 g/dL (31.0-37.0); MCV 88.3 fL (80.0-100.0); MEAN PLATELET VOLUME 12.3 fL (7.4-10.4); MONOCYTES 18.3 % (2-11); NEUTROPHILS 59.1 % (40-80); PLATELET COUNT 186 10x3/uL (130-400); RBC 4.45 10x6/uL (4.00-5.40); RDW 14.5 % (11.5-14.5); WBC 4.9 10x3/uL (4.8-10.8)
[2019-01-04 06:16] LABS: ANION GAP 12.5 mmol/L (8-16); CARBON DIOXIDE 33.1 mmol/L (21.0-32.0); CREATININE - SERUM 1.8 mg/dL (0.6-1.3); POTASSIUM - SERUM 3.6 mmol/L (3.5-5.1)
[2019-01-04 08:49] VITALS: BP 141/68
[2019-01-04 12:25] VITALS: BP 133/34
--- NOTE | 2019-01-04 15:45 | MORECARE ---
CASE MANAGEMENT DISCHARGE SUMMARY PATIENT: UMM RUCKER UNIT: [id number] ADM DATE: 01/01/19 AGE: 73 : 47 SEX: F ROOM/BED: D.5961 AUTHOR: AILEEN,DOC PHYSICIAN: REFERRING PHYSICIAN: MYRA ORDAZ MD DATE OF SERVICE: 01/04/19 Discharge Plan Patient Name: UMM RUCKER Facility: [facility]:[place] : 1945 Planned Disposition: Home Anticipated Discharge Date: 01/03/19 Discharge Date: Expected LOS: 2 Initial Reviewer: [email or web address] Initial Review Date: 01/02/2019 Generated: 01/04/19 4:45 pm DCP- Discharge Planning Updated by [email or web address]: Malik Gomez on 01/02/19 3:[address] Patient Name: UMM RUCKER Admission Status: Elective Accout number: [id number] Admission Date: 01-01-2019 : 1945 Admission Diagnosis: Attending: MYRA ORDAZ Current LOS: 1 Anticipated DC Date: 01-03-2019 Planned Disposition: Home Primary Insurance: [employer] CHOICE PPO MCR ADVANT Discharge Planning Comments: CM MET WITH PT IN ROOM TO DISCUSS DISCHARGE PLANNING AND NEEDS. PT REPORTS LIVING AT HOME INDEPENDENTLY WITH ADULT GRAND DAUGHTER AND 2 YEAR OLD GREAT GRANDSON. PT HAS OXYGEN CONCENTRATOR, NEBULIZER AND WALKER FROM [employer]. PT HAS NO OUTSIDE SERVICES ASSISTING IN THE HOME. CM DISCUSSED AVAILABILITY OF HOME HEALTH, REHAB SERVICES AND MEDICAL EQUIPMENT. PT DENIES DISCHARGE NEEDS, REPORTS HER GRAND DAUGHTER WILL PICK HER UP FOR DISCHARGE HOME. PT PLANS TO DISCHARGE HOME WITH FAMILY, HAS NO ANTICIPATED NEEDS. CM TO FOLLOW AND ASSIST IF NEEDED. Transit Specialist: Malik Gomez DCPIA - Discharge Planning Initial Assessment Updated by [id number]: Malik Gomez on 01/02/19 4:26 pm * Is the patient Alert and Oriented? Yes * How many steps to enter\exit or inside your home? NONE * PCP DR. ORDAZ * Pharmacy [facility], [facility] * Preadmission Environment Home with Family * ADLs Independent * Equipment Nebulizer Oxygen Walker * Other Equipment [facility], MEDICAL EQUIPMENT PROVIDER * List name and contact numbers for known caregivers / representatives who currently or will assist patient after discharge: TOM KRAMER, [place], * Verbal permission to speak to the caregivers and representatives has been obtained from the patient. N/A * Community resources currently utilized None * Please name any agencies selected above. NONE * Additional services required to return to the preadmission environment? No * Can the patient safely return to the preadmission environment? Yes * Has this patient been hospitalized within the prior 30 days at any hospital? No External Providers [facility] Provider[facility] Contact Date: 01/04/2019 Service Request Date: Service Type: Resolution: Reviewer: Comments: Coverage Notice Reviewer: [email or web address] Earl Gomez Notice Issued Date-Time: 01/04/2019 9:45 Notice Type: IM Discharge Notice Notice Delivered To: Patient Relationship to Patient: Associate Theatre Professor Name: Delivery Method: HAND - Hand Delivered Nadiya Days: Prior Verbal Notification: Recipient Understood Notice: Yes Recipient Signature: Yes Med Rec Note Co-signed by Attending: Coverage Notice Comment: Reviewer: SALOME Gomez Notice Issued Date-Time: 01/04/2019 9:45 Notice Type: Patient Choice Letter Notice Delivered To: Patient Relationship to Patient: Associate Theatre Professor Name: Delivery Method: HAND - Hand Delivered Nadiya Days: Prior Verbal Notification: Recipient Understood Notice: Yes Recipient Signature: Yes Med Rec Note Co-signed by Attending: Coverage Notice Comment: [facility] FOR OXYGEN, [facility] FOR NEBULIZER Last DP export: 01/02/19 3:34 p Patient Name: UMM RUCKER Page 00366 at 1545 All edits/amendments must be made on the electronic document DICTATION DATE: 01/04/19 1545 OCULAR CARE TECHNOLOGIST: YUSUF 01/04/19 1545 RPT#: [id number] DC DATE: STATUS: ADM IN [facility] [address] [place] [address] END OF REPORT
--- NOTE | 2019-01-04 16:00 | MORECARE ---
CASE MANAGEMENT DISCHARGE SUMMARY PATIENT: UMM RUCKER UNIT: [id number] ADM DATE: 01/01/19 AGE: 73 : 47 SEX: F ROOM/BED: D.7801 AUTHOR: AILEEN,DOC PHYSICIAN: REFERRING PHYSICIAN: MYRA ORDAZ MD DATE OF SERVICE: 01/04/19 Discharge Plan Patient Name: UMM RUCKER Facility: [facility]:[place] : 1945 Planned Disposition: Home Anticipated Discharge Date: 01/04/19 Discharge Date: Expected LOS: 3 Initial Reviewer: [email or web address] Initial Review Date: 01/02/2019 Generated: 01/04/19 5:00 pm DCP- Discharge Planning Updated by [email or web address]: Malik Gomez on 01/02/19 3:[address] Patient Name: UMM RUCKER Admission Status: Elective Accout number: [id number] Admission Date: 01-01-2019 : 1945 Admission Diagnosis: Attending: MYRA ORDAZ Current LOS: 1 Anticipated DC Date: 01-03-2019 Planned Disposition: Home Primary Insurance: [employer] CHOICE PPO MCR ADVANT Discharge Planning Comments: CM MET WITH PT IN ROOM TO DISCUSS DISCHARGE PLANNING AND NEEDS. PT REPORTS LIVING AT HOME INDEPENDENTLY WITH ADULT GRAND DAUGHTER AND 2 YEAR OLD GREAT GRANDSON. PT HAS OXYGEN CONCENTRATOR, NEBULIZER AND WALKER FROM [employer]. PT HAS NO OUTSIDE SERVICES ASSISTING IN THE HOME. CM DISCUSSED AVAILABILITY OF HOME HEALTH, REHAB SERVICES AND MEDICAL EQUIPMENT. PT DENIES DISCHARGE NEEDS, REPORTS HER GRAND DAUGHTER WILL PICK HER UP FOR DISCHARGE HOME. PT PLANS TO DISCHARGE HOME WITH FAMILY, HAS NO ANTICIPATED NEEDS. CM TO FOLLOW AND ASSIST IF NEEDED. Process Laboratory Specialist: Malik Gomez DCPIA - Discharge Planning Initial Assessment Updated by [id number]: Malik Gomez on 01/02/19 4:26 pm * Is the patient Alert and Oriented? Yes * How many steps to enter\exit or inside your home? NONE * PCP DR. ORDAZ * Pharmacy [facility], [facility] * Preadmission Environment Home with Family * ADLs Independent * Equipment Nebulizer Oxygen Walker * Other Equipment [facility], MEDICAL EQUIPMENT PROVIDER * List name and contact numbers for known caregivers / representatives who currently or will assist patient after discharge: TOM KRAMER, CLAUDY, * Verbal permission to speak to the caregivers and representatives has been obtained from the patient. N/A * Community resources currently utilized None * Please name any agencies selected above. NONE * Additional services required to return to the preadmission environment? No * Can the patient safely return to the preadmission environment? Yes * Has this patient been hospitalized within the prior 30 days at any hospital? No External Providers External Provider: Geronimo Vides Next Contact Date: 01/04/2019 Service Request Date: Service Type: Resolution: Reviewer: Comments: Coverage Notice Reviewer: [email or web address] Gomez Notice Issued Date-Time: 01/04/2019 9:45 Notice Type: IM Discharge Notice Notice Delivered To: Patient Relationship to Patient: Patient Svcs Mgr Name: Delivery Method: HAND - Hand Delivered Nadiya Days: Prior Verbal Notification: Recipient Understood Notice: Yes Recipient Signature: Yes Med Rec Note Co-signed by Attending: Coverage Notice Comment: Reviewer: SALOME Gomez Notice Issued Date-Time: 01/04/2019 9:45 Notice Type: Patient Choice Letter Notice Delivered To: Patient Relationship to Patient: Patient Svcs Mgr Name: Delivery Method: HAND - Hand Delivered Nadiya Days: Prior Verbal Notification: Recipient Understood Notice: Yes Recipient Signature: Yes Med Rec Note Co-signed by Attending: Coverage Notice Comment: [facility] FOR OXYGEN, [facility] FOR NEBULIZER Last DP export: 01/04/19 2:45 p Patient Name: UMM RUCKER Page [id number] at 1600 All edits/amendments must be made on the electronic document DICTATION DATE: 01/04/191558 STEAM HOIST OPERATOR: YUSUF 01/04/191558 RPT#: [id number] DC DATE: STATUS: ADM IN [facility] [address] [place] [address] END OF REPORT
--- NOTE | 2019-01-04 16:09 | MORECARE ---
CASE MANAGEMENT DISCHARGE SUMMARY PATIENT: UMM RUCKER UNIT: [id number] ADM DATE: 01/01/19 AGE: 73 : 47 SEX: F ROOM/BED: D.7944 AUTHOR: AILEEN,DOC PHYSICIAN: REFERRING PHYSICIAN: MYRA ORDAZ MD DATE OF SERVICE: 01/04/19 Discharge Plan Patient Name: UMM RUCKER Facility: [facility]:[place] : 1945 Planned Disposition: Home Anticipated Discharge Date: 01/04/19 Discharge Date: Expected LOS: 3 Initial Reviewer: [id number] Initial Review Date: 01/02/2019 Generated: 01/04/19 5:08 pm DCP- Discharge Planning Updated by [email or web address]: Malik Gomez on 01/02/19 3:[address] Patient Name: UMM RUCKER Admission Status: Elective Accout number: [id number] Admission Date: 01-01-2019 : 1945 Admission Diagnosis: Attending: MYRA ORDAZ Current LOS: 1 Anticipated DC Date: 01-03-2019 Planned Disposition: Home Primary Insurance: [employer] CHOICE PPO MCR ADVANT Discharge Planning Comments: CM MET WITH PT IN ROOM TO DISCUSS DISCHARGE PLANNING AND NEEDS. PT REPORTS LIVING AT HOME INDEPENDENTLY WITH ADULT GRAND DAUGHTER AND 2 YEAR OLD GREAT GRANDSON. PT HAS OXYGEN CONCENTRATOR, NEBULIZER AND WALKER FROM [employer]. PT HAS NO OUTSIDE SERVICES ASSISTING IN THE HOME. CM DISCUSSED AVAILABILITY OF HOME HEALTH, REHAB SERVICES AND MEDICAL EQUIPMENT. PT DENIES DISCHARGE NEEDS, REPORTS HER GRAND DAUGHTER WILL PICK HER UP FOR DISCHARGE HOME. PT PLANS TO DISCHARGE HOME WITH FAMILY, HAS NO ANTICIPATED NEEDS. CM TO FOLLOW AND ASSIST IF NEEDED. Adjudication Specialist: Malik Gomez DCPIA - Discharge Planning Initial Assessment Updated by [id number]: Malik Gomez on 01/02/19 4:26 pm * Is the patient Alert and Oriented? Yes * How many steps to enter\exit or inside your home? NONE * PCP DR. ORDAZ * Pharmacy [facility], [facility] * Preadmission Environment Home with Family * ADLs Independent * Equipment Nebulizer Oxygen Walker * Other Equipment [facility], MEDICAL EQUIPMENT PROVIDER * List name and contact numbers for known caregivers / representatives who currently or will assist patient after discharge: TOM KRAMER, CLAUDY, * Verbal permission to speak to the caregivers and representatives has been obtained from the patient. N/A * Community resources currently utilized None * Please name any agencies selected above. NONE * Additional services required to return to the preadmission environment? No * Can the patient safely return to the preadmission environment? Yes * Has this patient been hospitalized within the prior 30 days at any hospital? No Coverage Notice Reviewer: SALOME Gomez Notice Issued Date-Time: 01/04/2019 9:45 Notice Type: IM Discharge Notice Notice Delivered To: Patient Relationship to Patient: Child Development Teacher Name: Delivery Method: HAND - Hand Delivered Nadiya Days: Prior Verbal Notification: Recipient Understood Notice: Yes Recipient Signature: Yes Med Rec Note Co-signed by Attending: Coverage Notice Comment: Reviewer: SALOME Gomez Notice Issued Date-Time: 01/04/2019 9:45 Notice Type: Patient Choice Letter Notice Delivered To: Patient Relationship to Patient: Child Development Teacher Name: Delivery Method: HAND - Hand Delivered Nadiya Days: Prior Verbal Notification: Recipient Understood Notice: Yes Recipient Signature: Yes Med Rec Note Co-signed by Attending: Coverage Notice Comment: [facility] FOR OXYGEN, [facility] FOR NEBULIZER Last DP export: 01/04/19 3:00 p Patient Name: UMM RUCKER Page 05485 at 1609 All edits/amendments must be made on the electronic document DICTATION DATE: 01/04/191607 COOK FRUIT: YUSUF 01/04/191607 RPT#: [id number] DC DATE: STATUS: ADM IN [facility] [address] [place] [address] END OF REPORT
--- NOTE | 2019-01-04 16:16 | MORECARE ---
CASE MANAGEMENT DISCHARGE SUMMARY PATIENT: UMM RUCKER UNIT: [id number] ADM DATE: 01/01/19 AGE: 73 : 47 SEX: F ROOM/BED: D.0315 AUTHOR: AILEEN,DOC PHYSICIAN: REFERRING PHYSICIAN: MYRA ORDAZ MD DATE OF SERVICE: 01/04/19 Discharge Plan Patient Name: UMM RUCKER Facility: [facility]:[place] : 1945 Planned Disposition: Home Anticipated Discharge Date: 01/04/19 Discharge Date: Expected LOS: 3 Initial Reviewer: [id number] Initial Review Date: 01/02/2019 Generated: 01/04/19 5:16 pm Comments DCP- Discharge Planning Updated by [id number]: Malik Gomez on 01/04/19 3:[address] Patient Name: UMM RUCKER Admission Status: Elective Accout number: [id number] Admission Date: 01-01-2019 : 1945 Admission Diagnosis: Attending: MYRA ORDAZ Current LOS: 3 Anticipated DC Date: 01-04-2019 Planned Disposition: Home Primary Insurance: [employer] PPO MCR ADVANT Discharge Planning Comments: CM RECEIVED ORDERS FOR TRILOGY AND PORTABLE OXYGEN. CM RECEIVED QUALIFYING OXYGEN TESTING FOR PORTABLE OXYGEN. CM MET WITH PT IN ROOM WHO DOES WANT PORTABLE OXYGEN AND TRILOGY MACHINE. PT WANTS OXYGEN FROM [facility] BUT DOES NOT LIKE THEM AND WANTS THE TRILOGY FROM [facility], WHO SHE USED YEARS AGO. CHOICE LETTER SIGNED. IMPORTANT MESSAGE FROM MEDICARE PROVIDED AND EXPLAINED. CM CALLED [facility], , SPOKE TO CORDELIA AND PROVIDED REFERRAL INFORMATION. CM FAXED REFERRAL TO [facility], . CORDELIA ADVISED THEY WILL DELIVER TRILOGY TO PT'S HOME IF DISCHARGED HOME AFTER PROCESSING ORDER AND IF APPROVED BY INSURANCE. JIM SPOKE TO DR. CORREIA WHO ADVISED THAT PT NOT GETTING A TRILOGY WHILE IN HOSPITAL SHOULD NOT HOLD UP THE DISCHARGE HOME. CM CALLED [facility] [phone], SPOKE TO APPLE AND PROVIDED REFERRAL INFORMATION. CM FAXED REFERRAL TO [facility] [phone]. [facility] ADVISED THEY WILL DELIVER PORTABLE OXYGEN TO HOSPITAL TODAY AND WILL ARRANGE ADDITIONAL PORTALBE OXYGEN WHEN PT ARRIVES AT HOME AFTER DISCHARGE. Employee Benefits Specialist: Malik Gomez DCP- Discharge Planning Updated by [id number]: Malik Gomez on 01/02/19 3:[address] Patient Name: UMM RUCKER Admission Status: Elective Accout number: [id number] Admission Date: 01-01-2019 : 1945 Admission Diagnosis: Attending: MYRA ORDAZ Current LOS: 1 Anticipated DC Date: 01-03-2019 Planned Disposition: Home Primary Insurance: [employer] CHOICE PPO MCR ADVANT Discharge Planning Comments: CM MET WITH PT IN ROOM TO DISCUSS DISCHARGE PLANNING AND NEEDS. PT REPORTS LIVING AT HOME INDEPENDENTLY WITH ADULT GRAND DAUGHTER AND 2 YEAR OLD GREAT GRANDSON. PT HAS OXYGEN CONCENTRATOR, NEBULIZER AND WALKER FROM [facility]. PT HAS NO OUTSIDE SERVICES ASSISTING IN THE HOME. CM DISCUSSED AVAILABILITY OF HOME HEALTH, REHAB SERVICES AND MEDICAL EQUIPMENT. PT DENIES DISCHARGE NEEDS, REPORTS HER GRAND DAUGHTER WILL PICK HER UP FOR DISCHARGE HOME. PT PLANS TO DISCHARGE HOME WITH FAMILY, HAS NO ANTICIPATED NEEDS. CM TO FOLLOW AND ASSIST IF NEEDED. Employee Benefits Specialist: Malik Gomez DCPIA - Discharge Planning Initial Assessment Updated by [id number]: Malik Gomez on 01/02/19 4:26 pm * Is the patient Alert and Oriented? Yes * How many steps to enter\exit or inside your home? NONE * PCP DR. ORDAZ * Pharmacy [facility], [facility] * Preadmission Environment Home with Family * ADLs Independent * Equipment Nebulizer Oxygen Walker * Other Equipment [facility], MEDICAL EQUIPMENT PROVIDER * List name and contact numbers for known caregivers / representatives who currently or will assist patient after discharge: TOM KRAMER, GRANDDAUGHTER, * Verbal permission to speak to the caregivers and representatives has been obtained from the patient. N/A * Community resources currently utilized None * Please name any agencies selected above. NONE * Additional services required to return to the preadmission environment? No * Can the patient safely return to the preadmission environment? Yes * Has this patient been hospitalized within the prior 30 days at any hospital? No Coverage Notice Reviewer: [id number] Earl Gomez Notice Issued Date-Time: 01/04/2019 9:45 Notice Type: IM Discharge Notice Notice Delivered To: Patient Relationship to Patient: Interior Design Project Manager Name: Delivery Method: HAND - Hand Delivered Nadiya Days: Prior Verbal Notification: Recipient Understood Notice: Yes Recipient Signature: Yes Med Rec Note Co-signed by Attending: Coverage Notice Comment: Reviewer: [id number] - Malik Gomez Notice Issued Date-Time: 01/04/2019 9:45 Notice Type: Patient Choice Letter Notice Delivered To: Patient Relationship to Patient: Interior Design Project Manager Name: Delivery Method: HAND - Hand Delivered Nadiya Days: Prior Verbal Notification: Recipient Understood Notice: Yes Recipient Signature: Yes Med Rec Note Co-signed by Attending: Coverage Notice Comment: [facility] FOR OXYGEN, [facility] FOR NEBULIZER Last DP export: 01/04/19 3:09 p Patient Name: UMM RUCKER Page 01310 at 1616 All edits/amendments must be made on the electronic document DICTATION DATE: 01/04/191615 ACCOUNT LIAISON: YUSUF 01/04/191615 RPT#: [id number] DC DATE: STATUS: ADM IN [facility] [address] [place] [address] END OF REPORT
[2019-01-04] MEDS ORDERED: NORVASC5 MG PO (18:01)
[2019-01-04] MEDS ORDERED: BENICAR40 MG PO (18:02)
[2019-01-04] MEDS ORDERED: IPRAT-ALBUT 0.5-3 ML INH (18:11)
--- NOTE | 2019-01-04 18:21 | MORECARE ---
CASE MANAGEMENT DISCHARGE SUMMARY PATIENT: UMM RUCKER UNIT: [id number] ADM DATE: 01/01/19 AGE: 73 : 47 SEX: F ROOM/BED: D.5216 AUTHOR: AILEEN,DOC PHYSICIAN: REFERRING PHYSICIAN: MYRA ORDAZ MD DATE OF SERVICE: 01/04/19 Discharge Plan Patient Name: UMM RUCKER Facility: [facility]:[place] : 1945 Planned Disposition: Home Anticipated Discharge Date: 01/04/19 Discharge Date: Expected LOS: 3 Initial Reviewer: [email or web address] Initial Review Date: 01/02/2019 Generated: 01/04/19 7:21 pm Comments DCP- Discharge Planning Updated by [id number]: Malik Gomez on 01/04/19 3:[address] Patient Name: UMM RUCKER Admission Status: Elective Accout number: [id number] Admission Date: 01-01-2019 : 1945 Admission Diagnosis: Attending: MYRA ORDAZ Current LOS: 3 Anticipated DC Date: 01-04-2019 Planned Disposition: Home Primary Insurance: [employer] PPO MCR ADVANT Discharge Planning Comments: CM RECEIVED ORDERS FOR TRILOGY AND PORTABLE OXYGEN. CM RECEIVED QUALIFYING OXYGEN TESTING FOR PORTABLE OXYGEN. CM MET WITH PT IN ROOM WHO DOES WANT PORTABLE OXYGEN AND TRILOGY MACHINE. PT WANTS OXYGEN FROM [facility] BUT DOES NOT LIKE THEM AND WANTS THE TRILOGY FROM [facility], WHO SHE USED YEARS AGO. CHOICE LETTER SIGNED. IMPORTANT MESSAGE FROM MEDICARE PROVIDED AND EXPLAINED. CM CALLED [facility], , SPOKE TO CORDELIA AND PROVIDED REFERRAL INFORMATION. CM FAXED REFERRAL TO [facility], . CORDELIA ADVISED THEY WILL DELIVER TRILOGY TO PT'S HOME IF DISCHARGED HOME AFTER PROCESSING ORDER AND IF APPROVED BY INSURANCE. JIM SPOKE TO DR. CORREIA WHO ADVISED THAT PT NOT GETTING A TRILOGY WHILE IN HOSPITAL SHOULD NOT HOLD UP THE DISCHARGE HOME. CM CALLED [facility] [phone], SPOKE TO APPLE AND PROVIDED REFERRAL INFORMATION. CM FAXED REFERRAL TO [facility] [phone]. [facility] ADVISED THEY WILL DELIVER PORTABLE OXYGEN TO HOSPITAL TODAY AND WILL ARRANGE ADDITIONAL PORTALBE OXYGEN WHEN PT ARRIVES AT HOME AFTER DISCHARGE. Bench Worker Helper: Malik Gomez DCP- Discharge Planning Updated by [id number]: Malik Gomez on 01/02/19 3:[address] Patient Name: UMM RUCKER Admission Status: Elective Accout number: [id number] Admission Date: 01-01-2019 : 1945 Admission Diagnosis: Attending: MYRA ORDAZ Current LOS: 1 Anticipated DC Date: 01-03-2019 Planned Disposition: Home Primary Insurance: [employer] CHOICE PPO MCR ADVANT Discharge Planning Comments: CM MET WITH PT IN ROOM TO DISCUSS DISCHARGE PLANNING AND NEEDS. PT REPORTS LIVING AT HOME INDEPENDENTLY WITH ADULT GRAND DAUGHTER AND 2 YEAR OLD GREAT GRANDSON. PT HAS OXYGEN CONCENTRATOR, NEBULIZER AND WALKER FROM [facility]. PT HAS NO OUTSIDE SERVICES ASSISTING IN THE HOME. CM DISCUSSED AVAILABILITY OF HOME HEALTH, REHAB SERVICES AND MEDICAL EQUIPMENT. PT DENIES DISCHARGE NEEDS, REPORTS HER GRAND DAUGHTER WILL PICK HER UP FOR DISCHARGE HOME. PT PLANS TO DISCHARGE HOME WITH FAMILY, HAS NO ANTICIPATED NEEDS. CM TO FOLLOW AND ASSIST IF NEEDED. Bench Worker Helper: Malik Gomez DCPIA - Discharge Planning Initial Assessment Updated by [email or web address]: Malik Gomez on 01/02/19 4:26 pm * Is the patient Alert and Oriented? Yes * How many steps to enter\exit or inside your home? NONE * PCP DR. ORDAZ * Pharmacy [facility], [facility] * Preadmission Environment Home with Family * ADLs Independent * Equipment Nebulizer Oxygen Walker * Other Equipment [facility], MEDICAL EQUIPMENT PROVIDER * List name and contact numbers for known caregivers / representatives who currently or will assist patient after discharge: TOM KRAMER, GRANDDAUGHTER, * Verbal permission to speak to the caregivers and representatives has been obtained from the patient. N/A * Community resources currently utilized None * Please name any agencies selected above. NONE * Additional services required to return to the preadmission environment? No * Can the patient safely return to the preadmission environment? Yes * Has this patient been hospitalized within the prior 30 days at any hospital? No Coverage Notice Reviewer: [id number] Earl Gomez Notice Issued Date-Time: 01/04/2019 9:45 Notice Type: IM Discharge Notice Notice Delivered To: Patient Relationship to Patient: Building Economist Name: Delivery Method: HAND - Hand Delivered Nadiya Days: Prior Verbal Notification: Recipient Understood Notice: Yes Recipient Signature: Yes Med Rec Note Co-signed by Attending: Coverage Notice Comment: Reviewer: [id number] - Malik Gomez Notice Issued Date-Time: 01/04/2019 9:45 Notice Type: Patient Choice Letter Notice Delivered To: Patient Relationship to Patient: Building Economist Name: Delivery Method: HAND - Hand Delivered Nadiya Days: Prior Verbal Notification: Recipient Understood Notice: Yes Recipient Signature: Yes Med Rec Note Co-signed by Attending: Coverage Notice Comment: [facility] FOR OXYGEN, [facility] FOR NEBULIZER Last DP export: 01/04/19 3:16 p Patient Name: UMM RUCKER Page 49046 at 1821 All edits/amendments must be made on the electronic document DICTATION DATE: 01/04/191819 SUPERVISOR AIRCRAFT MAINTENANCE: YUSUF 01/04/191819 RPT#: [id number] DC DATE: STATUS: ADM IN [facility] [address] [place] [address] END OF REPORT
--- NOTE | 2019-01-04 19:32 | NUR ---
EVENING ROUNDS MADE. PT LAYING IN BED RESTING. PT DENIES FURTHER CONCERNS AT THIS TIME. INFORMED PT THAT I WAS WORKING ON HER DISCHARGE AND WE WOULD WORK ON GETTING HER HOME SOON. NO FURTHER CONCERNS AT THIS TIME. BED LOWERED AND LOCKED. CL IN REACH. WILL CTM.
--- NOTE | 2019-01-04 20:07 | NUR ---
DC GIVEN TO PT IV REMOVED TIP INTACT.
--- NOTE | 2019-01-04 20:50 | NUR ---
PT DC HOME VIA WHEELCHAIR PER PERSONAL CAR.
--- NOTE | 2019-01-05 16:51 | EC ---
PATIENT:UMM RUCKER DATE OF SERVICE: 01/01/19 SEX: F MEDICAL RECORD: [id number] DATE OF : [birth year] LOCATION:D.M2 D.212 AGE OF PATIENT: 73 ADMISSION DATE: 01/01/19 REFERRING PHYSICIAN: INTERPRETING PHYSICIAN: TOMEKA STRINGER MD ECHOCARDIOGRAM REPORT ECHO CHARGES 4 ECHO COMPLETE Date: 01/02/19 CLINICAL DIAGNOSIS: CHF ECHOCARDIOGRAPHIC MEASUREMENTS (adult normal given) AC root (d.<3.7cm) 3.0 cm LV Septum d (<1.2 cm> 1.0 cm Valve Excursion 1.8 cm LV Septum (systole) 1.3 cm Left Atria (s.<4.0cm> 4.3 cm LVPW d(<1.2cm) 1.3 cm RV (d.<2.3cm) 2.5 cm LVPW (sytole) 1.4 cm LV diastole(<5.6CM) 5.2 cm MV E-F(>70mm/sec) cm LV systole 4.6 cm LVOT Diameter 1.7 cm MV exc.(>10mm) cm Est.ejection fraction (50-75%) % DOPPLER: LVIT cm/sec A 96 cm/sec E 49 cm/sec LA cm/sec RVSP 17.8 mmHg LVOT 111 cm/sec AOP1/2T m/s Asc. Ao 175 cm/sec RVOT 91 cm/sec RA cm/sec PA 88 cm/sec AV Gradient Peak 12.3 mmHg AV Mean 6.7 mmHg AV Area 1.6 cm MV Gradient Peak 4.1 mmHg MV Mean 1.5 mmHg MV Area cm COMMENTS: Property Man: Antoni MELTON [employer] Professor: 1 Dr. Stringer TAPE# PACS Pericardial Effusion N DATE OF SERVICE: 01/02/2019 FINDINGS: 1. Left ventricular chamber size is within normal limits. Left ventricular systolic function is normal. Overall ejection fraction is estimated at 55%. 2. Left atrium is enlarged at 4.3 cm. Right atrium and right ventricular chamber sizes are as well mildly dilated. 3. Valvular structures have normal structure and motion. 4. Doppler interrogation only reveals trace mitral regurgitation. No other valvular insufficiency or stenosis. ECHOCARDIOGRAM REPORT [id number] UMM RUCKER 5. No evidence of pericardial effusion or left ventricular thrombus. TRANSINT:[id number] Voice Confirmation ID: [id number] DOCUMENT ID: [id number] TOMEKA STRINGER MD at 1651 CC: [id number] DICTATION DATE: 01/03/19 1147 BUTTONHOLE MARKER: 01/03/19 1154 DIS IN 01/04/19 [place] [id number] [place] [id number]
== END 2019-01-04 20:50 | disposition home or self-care (01) | DRG 291 ==
LOC: D.M2 18:24
PROVIDERS: Internal Medicine Pulmonary Disease; ADMIT Family Medicine; ATTEND Family Medicine
DX: I11.0 Hypertensive heart disease with heart failure (principal); J96.01 Acute respiratory failure with hypoxia; J96.22 Acute and chronic respiratory failure with hypercapnia; J96.21 Acute and chronic respiratory failure with hypoxia; J18.1 Lobar pneumonia, unspecified organism; N17.9 Acute kidney failure, unspecified; J98.11 Atelectasis; J44.0 Chronic obstructive pulmonary disease with (acute) lower respiratory infection; I50.33 Acute on chronic diastolic (congestive) heart failure; E11.9 Type 2 diabetes mellitus without complications; K21.9 Gastro-esophageal reflux disease without esophagitis; I25.10 Atherosclerotic heart disease of native coronary artery without angina pectoris; I34.0 Nonrheumatic mitral (valve) insufficiency; F41.9 Anxiety disorder, unspecified; F32.9 Major depressive disorder, single episode, unspecified; Z99.81 Dependence on supplemental oxygen

== ENCOUNTER 2020-11-05 23:21 | Inpatient (IN) | payer MEDICARE ==
[~2020-11-05] VITALS: Ht 157.5 cm; Wt 86.4 kg
[~2020-11-05 23:21] MED LIST changes: +AZITHROMYCIN500 MG PO; +BENICAR40 MG PO; +SODIUM CL 0.91000 ML IV; +VENTOLIN HFA [SP8 GM INH
[2020-11-05] MEDS ORDERED: GLUCOPHAGE850 MG PO (23:31)
[2020-11-05] MEDS ORDERED: GLUCOPHAGE500 MG PO (23:31)
[2020-11-05 23:45] VITALS: BP 129/43
[2020-11-06] VITALS (8 sets, daily range): BP systolic 105–169; BP diastolic 37–79; Ht 157.5 cm; Wt 86.4 kg
[2020-11-06 00:06] LABS: NITRITE NEGATIVE (NEGATIVE)
[2020-11-06 00:07] LABS: BILIRUBIN NEGATIVE (NEGATIVE); KETONE NEGATIVE (NEGATIVE); UROBILINOGEN NORMAL mg/dL (< 2)
--- NOTE | 2020-11-06 00:07 | NUR ---
PT GIVEN BLANKET AND HEAD OF BED AJDUSTED TO LEVEL OF COMFORT. DENIES FURTHER NEEDS. CALL LIGHT IN REACH.
[2020-11-06 00:09] LABS: BACTERIA MODERATE HPF (NONE SEEN); SQUAMOUS EPITHELIAL 0-5 HPF (0-4); WHITE CELLS - URINE NONE SEEN HPF (0-4)
[2020-11-06 00:34] LABS: BASOPHILS 0.1 % (0-2); EOSINOPHILS 0.1 % (0-7); HEMATOCRIT 36.6 % (36.0-48.0); HEMOGLOBIN 11.3 g/dL (12-16); IMMATURE GRANULOCYTES 0.5 % (0-5); LYMPHOCYTES 2.4 % (15-50); MCH 27.8 pg (26.0-34.0); MCHC 30.9 g/dL (31.0-37.0); MCV 89.9 fL (80.0-100.0); MEAN PLATELET VOLUME 11.8 fL (7.4-10.4); MONOCYTES 10.7 % (2-11); NEUTROPHIL ABS# 11.01 10x3/uL (1.56-6.13); NEUTROPHILS 86.2 % (40-80); PLATELET COUNT 214 10x3/uL (130-400); RBC 4.07 10x6/uL (4.00-5.40); RDW 14.3 % (11.5-14.5); WBC 12.8 10x3/uL (4.8-10.8)
[2020-11-06 00:35] LABS: ANION GAP 16.6 mmol/L (8-16); CALCIUM 8.2 mg/dL (8.5-10.1); CARBON DIOXIDE 20.5 mmol/L (21.0-32.0); CREATININE - SERUM 1.6 mg/dL (0.6-1.3); POTASSIUM - SERUM 4.1 mmol/L (3.5-5.1)
[2020-11-06 00:41] LABS: ALBUMIN 2.9 g/dL (3.4-5.0); BILIRUBIN - TOTAL 0.28 mg/dL (0.2-1.3); PROTEIN - SERUM 6.5 g/dL (6.4-8.2)
--- NOTE | 2020-11-06 03:27 | NUR ---
RECEIVED PT FROM ER VIA BED. PT A&O X4. PIV TO LEFT FOREARM, PATENT AND INFUSING, NO REDNESS OR SWELLING. PT ON BEDREST. EDUCATED PT ON CL AND NEEDS, VERBALIZED UNDERSTANDING. BED LOW, ALARM ON, CL IN REACH.
[2020-11-06 07:14] LABS: % SATURATION 6 % (15-55); IRON 20 ug/dl (35-150); TOTAL IRON BIND CAPACITY 327 ug/dl (260-445); UNSAT IRON BIND CAPACITY 307 ug/dl (150-375)
[2020-11-06 07:26] LABS: APTT 34.4 SECONDS (22.8-39.4); INR 1.11 (0.85-1.17); PROTIME 13.2 SECONDS (11.6-15.0)
[2020-11-06 07:42] LABS: MAGNESIUM - SERUM 1.9 mg/dL (1.8-2.4)
--- NOTE | 2020-11-06 20:00 | NUR ---
PT LYING IN BED SLEEPING WITHOUT DISTRESS, AWAKENS EASILY. DENIES NEEDS. BED ALARM ON. CL IN REACH
[2020-11-07] VITALS: BP 166/62
[2020-11-07 03:42] LABS: INFLUENZA TYPE A NEGATIVE (NEGATIVE); INFLUENZA TYPE B NEGATIVE (NEGATIVE)
[2020-11-07 04:00] VITALS: BP 156/69
[2020-11-07 06:40] LABS: BASOPHILS 0.3 % (0-2); EOSINOPHILS 0 % (0-7); HEMATOCRIT 34.7 % (36.0-48.0); HEMOGLOBIN 11.1 g/dL (12-16); LYMPHOCYTES 6.2 % (15-50); MCH 27.4 pg (26.0-34.0); MCHC 31.9 g/dL (31.0-37.0); MEAN PLATELET VOLUME 9.1 fL (7.4-10.4); MONOCYTES 5.8 % (2-11); NEUTROPHILS 87.7 % (40-80); PLATELET COUNT 247 10x3/uL (130-400); RBC 4.03 10x6/uL (4.00-5.40); RDW 15.2 % (11.5-14.5); WBC 13.3 10x3/uL (4.8-10.8)
[2020-11-07 06:44] LABS: MCV 86.1 fL (80.0-100.0)
[2020-11-07 07:00] LABS: ALBUMIN 2.6 g/dL (3.4-5.0); ANION GAP 13.7 mmol/L (8-16); BILIRUBIN - TOTAL 0.1 mg/dL (0.2-1.3); CALCIUM 8.9 mg/dL (8.5-10.1); CARBON DIOXIDE 24.5 mmol/L (21.0-32.0); CREATININE - SERUM 1.4 mg/dL (0.6-1.3); POTASSIUM - SERUM 4.2 mmol/L (3.5-5.1); PROTEIN - SERUM 6.6 g/dL (6.4-8.2)
[2020-11-07 09:11] VITALS: BP 161/77
[2020-11-07 12:35] VITALS: BP 138/70
[2020-11-07 16:27] VITALS: BP 143/57
--- NOTE | 2020-11-07 22:02 | NUR ---
ASSESSED AT THE BEGINNING OF THE SHIFT. PT IS ALEART AND ABLE TO ANSWER QUESTIONS/ VERBALIZE NEEDS. SHE IS VERY SHORT OF BREATH WHEN LYING DOWN OR ON BACK. HER O2 IS SET AT 3 LITERS N/C. SHE HAS A PUREWICK IN PLACE AND 1000 WAS EMPTIED AT THE BEGINNING OF THE SHIFT. SHE SAT UP ON THE SIDE OF THE BED FOR A WHILE AND WHEN SHE WAS BREATHING BETTER LAID DOWN ON HER SIDE. SHE WAS INFORMED THAT THE PURE WICK MIGHT NOW WORK WELL ON HER SIDE. TELEMETRY ORDER FOUND AND TELEMETRY PLACED ON PATIENT. THER IS CELLULITUS TO THE ABD.
[2020-11-07 22:09] VITALS: BP 163/71
[2020-11-08 01:35] VITALS: BP 155/57
--- NOTE | 2020-11-08 04:32 | NUR ---
PT STATES SHE HAS NOT FELT WELL DURING THE NIGHT. SHE HAS SAT UP ON THE SIDE OF THE BED SEVERAL TIMES BECAUSE SHE STATED IT WAS HARD TO BREATH LAYING DOWN AND DID NOT THINK IT WAS ANY BETTER IN THE BED POSITIONED UP. SHE DOES BREATH BETTER WHEN SHE IS SITTING UP LIKE THIS.
[2020-11-08 04:58] VITALS: BP 158/58
[2020-11-08 06:03] LABS: EOSINOPHILS 0.2 % (0-7); HEMATOCRIT 33.1 % (36.0-48.0); HEMOGLOBIN 10.6 g/dL (12-16); LYMPHOCYTES 11.8 % (15-50); MCH 27.7 pg (26.0-34.0); MCV 86.5 fL (80.0-100.0); MEAN PLATELET VOLUME 10.2 fL (7.4-10.4); MONOCYTES 8.3 % (2-11); NEUTROPHILS 78.7 % (40-80); PLATELET COUNT 261 10x3/uL (130-400); RBC 3.83 10x6/uL (4.00-5.40); RDW 15.2 % (11.5-14.5); WBC 11.1 10x3/uL (4.8-10.8)
[2020-11-08 06:38] LABS: ALBUMIN 2.5 g/dL (3.4-5.0); ANION GAP 12.3 mmol/L (8-16); CALCIUM 9.1 mg/dL (8.5-10.1); CARBON DIOXIDE 26.8 mmol/L (21.0-32.0); CREATININE - SERUM 1.3 mg/dL (0.6-1.3); MAGNESIUM - SERUM 2.1 mg/dL (1.8-2.4); POTASSIUM - SERUM 4.1 mmol/L (3.5-5.1); PROTEIN - SERUM 6.7 g/dL (6.4-8.2)
[2020-11-08 06:42] LABS: BILIRUBIN - TOTAL 0.09 mg/dL (0.2-1.3)
[2020-11-08 08:26] VITALS: BP 160/91
[2020-11-08 11:34] VITALS: BP 151/73
[2020-11-08 17:26] VITALS: BP 130/64
[2020-11-08 20:00] VITALS: BP 153/43
[2020-11-09] VITALS: BP 130/43
--- NOTE | 2020-11-09 02:30 | NUR ---
I have reviewed this patient and I concur with the Shift Assessment completed by the Licensed Practical Nurse today this shift.
[2020-11-09 04:00] VITALS: BP 163/52
[2020-11-09 07:16] LABS: HEMOGLOBIN 11.7 g/dL (12-16); MCH 27.6 pg (26.0-34.0); MCHC 31.7 g/dL (31.0-37.0); PLATELET COUNT 267 10x3/uL (130-400); RBC 4.26 10x6/uL (4.00-5.40); RDW 15.7 % (11.5-14.5); WBC 10.1 10x3/uL (4.8-10.8)
[2020-11-09 07:57] LABS: ALBUMIN 2.8 g/dL (3.4-5.0); ANION GAP 13.5 mmol/L (8-16); BILIRUBIN - TOTAL 0.11 mg/dL (0.2-1.3); CALCIUM 9.1 mg/dL (8.5-10.1); CREATININE - SERUM 1.3 mg/dL (0.6-1.3); MAGNESIUM - SERUM 2.1 mg/dL (1.8-2.4); POTASSIUM - SERUM 4.5 mmol/L (3.5-5.1); PROTEIN - SERUM 6.8 g/dL (6.4-8.2)
--- NOTE | 2020-11-09 08:06 | NUR ---
ROUSES TO VERBAL STIMULATION. ANSWERED QUESTIONS APPROPRIATELY. LUNGS ARE CLEAR BILATERALLY, NO COUGH NOTED. SKIN IS INTACT WITHOUT REDNESS. IV TO LEFT FOREARM IS PATENT WITHOUT REDNESS AT INSERTION SITE. PUREWICK IN PLACE. DENIES NEEDS.
[2020-11-09 09:00] VITALS: BP 179/75
[2020-11-09 09:12] LABS: ANISOCYTOSIS 1+; LYMPHOCYTES 13 % (15-50); MONOCYTES 5 % (2-11); NEUTROPHILS 81 % (40-80); PLATELET ESTIMATE NORMAL
--- NOTE | 2020-11-09 10:39 | NUR ---
INCONTINENT OF URINE. UP TO BR WITH ONE PERSON MIN ASSIST. VOIDED CLEAR YELLOW URINE. UP IN CHIAR AT BEDSIDE.
--- NOTE | 2020-11-09 11:30 | NUR ---
FSBS 151. REFUSED ANY INSULIN AT THIS TIME. WILL MONITOR. LUNCH SERVED IN ROOM.
[2020-11-09 12:53] VITALS: BP 144/66
--- NOTE | 2020-11-09 14:50 | EC ---
PATIENT:UMM RUCKER DATE OF SERVICE: 11/06/20 SEX: F MEDICAL RECORD: [id number] DATE OF : [birth year] LOCATION:[facility] AGE OF PATIENT: 75 ADMISSION DATE: 11/06/20 REFERRING PHYSICIAN: INTERPRETING PHYSICIAN: ZAIRE GAMEZ MD ECHOCARDIOGRAM REPORT ECHO CHARGES 5 ECHO LIMITED Date: 11/07/20 CLINICAL DIAGNOSIS: LVH ECHOCARDIOGRAPHIC MEASUREMENTS (adult normal given) AC root (d.<3.7cm) 0 cm LV Septum d (<1.2 cm> 0 cm Valve Excursion 0 cm LV Septum (systole) 0 cm Left Atria (s.<4.0cm> 0 cm LVPW d(<1.2cm) 0 cm RV (d.<2.3cm) 0 cm LVPW (sytole) 0 cm LV diastole(<5.6CM) 0 cm MV E-F(>70mm/sec) 0 cm LV systole 0 cm LVOT Diameter 0 cm MV exc.(>10mm) 0 cm Est.ejection fraction (50-75%) % DOPPLER: LVIT cm/sec A 0 cm/sec E 0 cm/sec LA 0 cm/sec RVSP 31 mmHg LVOT 0 cm/sec AOP1/2T m/s Asc. Ao 0 cm/sec RVOT 0 cm/sec RA 0 cm/sec PA 0 cm/sec AV Gradient Peak 0 mmHg AV Mean 0 mmHg AV Area 0 cm MV Gradient Peak 0 mmHg MV Mean 0 mmHg MV Area 0 cm COMMENTS: 0 Ad Operations Coordinator: 5 LIVIA MELTON Plastic Frame Inserter: 5 Dr. Gamez TAPE# Pericardial Effusion N DATE OF SERVICE: CLINICAL INDICATION: Left ventricular hypertrophy. INTERPRETATION: Technically difficult and limited study with the patient sitting upright. FINDINGS: Overall, normal left ventricular chamber size and contractile function, ejection fraction 55%. Right atrium and right ventricular chamber size and function appeared normal. Aortic valve not well visualized. No aortic ECHOCARDIOGRAM REPORT [id number] UMM RUCKER regurgitation. Mitral valve appears normal. Mild mitral regurgitation. Tricuspid valve appears normal. Trace tricuspid regurgitation. Pulmonic valve not well visualized. No pulmonary regurgitation noted. No pericardial effusion visualized. IMPRESSION: Technically difficult and limited study, overall normal left ventricular chamber size and contractile function with ejection fraction of 55% to 60%. TRANSINT:[id number] Voice Confirmation ID: [id number] DOCUMENT ID: [id number] ZAIRE GAMEZ MD at 1450 CC: [id number] DICTATION DATE: 11/08/201651 COUNTER TOP ASSEMBLER: 11/08/20 192 ADM IN [facility] [address] [id number]
--- NOTE | 2020-11-09 15:00 | NUR ---
RESTING QUIETLY IN ROOM. NO NEEDS NOTED.
[2020-11-09 16:51] VITALS: BP 145/56
--- NOTE | 2020-11-09 17:00 | NUR ---
FSBS 121. NO COVERAGE REQUIRED.
--- NOTE | 2020-11-09 18:49 | NUR ---
ATE ONLY A COUPLE BITES OF SUPPER. DENIES NEEDS. NO CHANGES NOTED.
[2020-11-09 20:00] VITALS: BP 167/67
--- NOTE | 2020-11-10 07:48 | NUR ---
EDUCATION PROVIDED ON SCDS. REFUSES SCDS. GETS LOVENOX.
--- NOTE | 2020-11-10 08:01 | NUR ---
ALERT AND ORIENTED. ASSESSMENT COMPLETE. DENIES NEEDS. BED LOW. CALL DSOUZA AND PERSONAL ITEMS IN REACH. WILL CONTINUE TO MONITOR.
[2020-11-10 09:22] VITALS: BP 144/72
--- NOTE | 2020-11-10 10:06 | NUR ---
TELE DC PER PROTOCOL.
[2020-11-10 11:35] VITALS: BP 120/64
[2020-11-10 12:43] LABS: BASOPHILS 0 % (0-2); EOSINOPHILS 0.6 % (0-7); HEMATOCRIT 35.3 % (36.0-48.0); HEMOGLOBIN 11.4 g/dL (12-16); LYMPHOCYTES 19.2 % (15-50); MCH 27.9 pg (26.0-34.0); MCHC 32.2 g/dL (31.0-37.0); MCV 86.7 fL (80.0-100.0); MEAN PLATELET VOLUME 8.7 fL (7.4-10.4); MONOCYTES 12.7 % (2-11); NEUTROPHILS 67.5 % (40-80); RBC 4.08 10x6/uL (4.00-5.40); RDW 14.6 % (11.5-14.5); WBC 9.2 10x3/uL (4.8-10.8)
[2020-11-10 13:11] LABS: ALBUMIN 2.7 g/dL (3.4-5.0); ANION GAP 9.9 mmol/L (8-16); BILIRUBIN - TOTAL 0.13 mg/dL (0.2-1.3); CARBON DIOXIDE 27.9 mmol/L (21.0-32.0); CREATININE - SERUM 1.3 mg/dL (0.6-1.3); PROTEIN - SERUM 6.6 g/dL (6.4-8.2)
[2020-11-10 13:12] LABS: POTASSIUM - SERUM 3.8 mmol/L (3.5-5.1)
[2020-11-10 13:15] LABS: PLATELET COUNT 324 10x3/uL (130-400)
--- NOTE | 2020-11-10 13:22 | NUR ---
OT NOTE: PT EVALUATED LAST WEEK, HOWEVER, AT THAT TIME SHE WAS VERY NAUSEATED AND VEBRILE.. THERES WAS ONLY A LIMITED AMOUT OF ACTIVITY SHE WAS ABLE TO DO FOR EVALUATION. HOWEVER, TODAY, PT DOING MUCH BETTER. PT ALERT AND ORIENTED. PERFORMED BED MOB WITH MIN ASSIST; AMBULATED AROUND BED TO BATHROOM WITH MIN ASSIST AND VC FOR WALKER MGMT, PERFORMED TOILET TRANSFER WITH MIN ASSIST; SET UP WITH TOILET HYGIENE; AMB BACK AROUND BED TO SINK WITH MIN ASSIST; TRANSFERRED TO CHAIR WITH SET UP.. INITIALLY DID NOT WANT ANY BREAKFAST, HOWEVER, ONCE SHE WAS UP TO THE CHAIR, SHE DECIDED THAT SHE WAS READY FOR BREAKFAST.. OFFERED TO WARM HER FOOD, HOWEVER, SHE STATED THAT IT WAS FINE. TRAY SET UP; ALARM PLACED IN CHAIR..CALL LIGHT IN REACH. RAFAELA FREEMAN, OTR/L [phone]
--- NOTE | 2020-11-10 14:03 | NUR ---
RESTING IN BED. DENIES NEEDS. WILL CONTINUE TO MONITOR.
--- NOTE | 2020-11-10 14:22 | NUR ---
SPOKE WITH SARAH IN RT TO EVALUATE FOR PORTABLE HOME O2. STUCK IN LABOR AND DELIVERY AT THE MOMENT. WILL PERFORM WALK TEST ON PATIENT WITHOUT O2 AND DOCUMENT.
--- NOTE | 2020-11-10 14:36 | NUR ---
Nutrition follow-up: Pt reports not feeling well; appetite poor at this time Diet order: Consistent CHO PO Intake ~35% average of meals Labs reviewed; Glucose under poor control Wt: 190# Pt is walking with PT +BM charted Recommend: Pt may benefit from an appetite stimulant due to poor po intake. RDN will follow-up: 11/13/20
--- NOTE | 2020-11-10 14:43 | NUR ---
PORTABLE O2 TEST PERFORMED. SAT 90% ON ROOM AIR. WALKED PATIENT FROM CHAIR TO BATHROOM AND BACK. SAT 84%. PLACED BACK ON 4L. SAT 94% WHEN AMBULATING ON 4L. CALLED PATIENT'S GRANDDAUGHTER, TOM, WHO STATES PATIENT USES [facility] FOR HOME OXYGEN. ALL INFO ON O2 TESTING FORM AND GIVEN TO ЕКАТЕРИНА, CASE MANAGEMENT, TO SET UP PORTABLE O2.
--- NOTE | 2020-11-10 15:00 | MORECARE ---
CASE MANAGEMENT DISCHARGE SUMMARY PATIENT: UMM RUCKER UNIT: [id number] ADM DATE: 11/06/20 AGE: 75 : 47 SEX: F ROOM/BED: D[facility] AUTHOR: MATTY GALLAGHER PHYSICIAN: REFERRING PHYSICIAN: LAINE GALAN MD DATE OF SERVICE: 11/10/20 Case Management Discharge Planning Summary DCP REVIEW SUMMARY ANTICIPATED D/C DATE: EXPECTED LOS : CASE STATUS: DCP Initiated INITIAL REVIEW: 11/06/2020 INITIAL REVIEWER: Anayeli Mon FINAL DISCHARGE DISPOSITION: : FINAL REVIEWER: FINAL REVIEW DATE: DCP Focus Questions & Answers QUESTION: ANSWER : PATIENT: UMM RUCKER ENCOUNTER: [id number] MEDICAL RECORD#: [id number] ADMISSION DATE: 11/06/2020 DISCHARGE DATE: ATTENDING MD: LAINE LIAO : AGE: 75 MARITAL STATUS: D DC PLAN ID: [id number] FACILITY: [facility] PRINTED ON: 11/10/20 15:00 CT All edits/amendments must be made on the electronic document DICTATION DATE: 11/10/20 1500 SHOVEL OILER: DM 11/10/20 1500 RPT#: [id number] DC DATE: STATUS: ADM IN [facility] [address] [place] [address] END OF REPORT
--- NOTE | 2020-11-10 15:14 | MORECARE ---
CASE MANAGEMENT DISCHARGE SUMMARY PATIENT: UMM RUCKER UNIT: [id number] ADM DATE: 11/06/20 AGE: 75 : 47 SEX: F ROOM/BED: D.2220 AUTHOR: AILEEN,DOC PHYSICIAN: REFERRING PHYSICIAN: LAINE GALAN MD DATE OF SERVICE: 11/10/20 Case Management Discharge Planning Summary COMMENTS ENTERED DATE: 11/10/20 14:58 CT COMMENT TYPE: Discharge Planning REVIEWER: Anayeli Mon PER PATIENT'S NURSE SHE DOES NOT HAVE PORTABLE O2, SHE FAILED HER WALK TEST AND NEEDS PORTABLE O2. [employer] IS THE COMPANY WHERE SHE GOT HER HOME CONCENTRATOR. I CALLED [employer] AND SPOKE WITH LEONARDA, FAXED HER THE WALK TEST AND THE ORDER AND SHE WILL HAVE PORTABLE O2 DELIVERED TO THE HOSPITAL CM TO FOLLOW AND ASSIST NEEDED DCP REVIEW SUMMARY ANTICIPATED D/C DATE: EXPECTED LOS : CASE STATUS: DCP Initiated INITIAL REVIEW: 11/06/2020 INITIAL REVIEWER: Anayeli Mon FINAL DISCHARGE DISPOSITION: : FINAL REVIEWER: FINAL REVIEW DATE: DCP Focus Questions & Answers QUESTION: ANSWER : PATIENT: UMM RUCKER ENCOUNTER: [id number] MEDICAL RECORD#: [id number] ADMISSION DATE: 11/06/2020 DISCHARGE DATE: ATTENDING MD: LAINE LIAO : AGE: 75 MARITAL STATUS: D DC PLAN ID: [id number] FACILITY: [facility] PRINTED ON: 11/10/20 15:13 CT All edits/amendments must be made on the electronic document DICTATION DATE: 11/10/201512 SANDER SETTER: DM 11/10/20 151 RPT#: [id number] DC DATE: STATUS: ADM IN [facility] [address] [place] [address] END OF REPORT
[2020-11-10] MEDS ORDERED: FLORAJEN DIGES1 EACH PO (15:15)
[2020-11-10] MEDS ORDERED: NORVASC10 MG PO (15:15)
[2020-11-10] MEDS ORDERED: CEPHALEXIN250 M1 PO (15:16)
--- NOTE | 2020-11-10 15:28 | MORECARE ---
CASE MANAGEMENT DISCHARGE SUMMARY PATIENT: UMM RUCKER UNIT: [id number] ADM DATE: 11/06/20 AGE: 75 : 47 SEX: F ROOM/BED: D.2220 AUTHOR: AILEEN,DOC PHYSICIAN: REFERRING PHYSICIAN: LAINE GALAN MD DATE OF SERVICE: 11/10/20 Case Management Discharge Planning Summary COMMENTS ENTERED DATE: 11/10/20 15:24 CT COMMENT TYPE: Discharge Planning REVIEWER: Anayeli Blandon is her PCP and she uses [facility] on [address] ENTERED DATE: 11/10/20 15:23 CT COMMENT TYPE: Discharge Planning REVIEWER: Anayeli Mon Patient did not think she needed home health, stated she cooks, cleans does everything she needs to do ENTERED DATE: 11/10/20 15:19 CT COMMENT TYPE: Discharge Planning REVIEWER: Anayeli Mon CM met with patient to complete initial dc planning assessment. CM educated patient on the CM role and verbal consent given by patient to complete assessment. Patient lives at home with her granddaughter where she stated she is independent with her care. At discharge patient plans to return home and feels this is a safe discharge. CM discussed availability of home health, rehab services, and medical equipment. Her daughter and granddaughter will be her otr driver home. [facility] will be delivering her portable o2 to the hospital. imm served and explained. She has a walker at home, but does not use it. Patient denied known discharge needs at this time. CM will continue to follow and will assist as needed with dc plans/needs. ENTERED DATE: 11/10/20 14:58 CT COMMENT TYPE: Discharge Planning REVIEWER: Anayeli Mon PER PATIENT'S NURSE SHE DOES NOT HAVE PORTABLE O2, SHE FAILED HER WALK TEST AND NEEDS PORTABLE O2. [employer] IS THE COMPANY WHERE SHE GOT HER HOME CONCENTRATOR. I CALLED [facility] AND SPOKE WITH LEONARDA, FAXED HER THE WALK TEST AND THE ORDER AND SHE WILL HAVE PORTABLE O2 DELIVERED TO THE HOSPITAL CM TO FOLLOW AND ASSIST NEEDED DCP REVIEW SUMMARY ANTICIPATED D/C DATE: EXPECTED LOS : CASE STATUS: DCP Initiated INITIAL REVIEW: 11/06/2020 INITIAL REVIEWER: Anayeli Mon FINAL DISCHARGE DISPOSITION: : FINAL REVIEWER: FINAL REVIEW DATE: DCP Focus Questions & Answers QUESTION: ANSWER : PATIENT: UMM RUCKER ENCOUNTER: [id number] MEDICAL RECORD#: [id number] ADMISSION DATE: 11/06/2020 DISCHARGE DATE: ATTENDING MD: LAINE LIAO : AGE: 75 MARITAL STATUS: D DC PLAN ID: [id number] FACILITY: [facility] PRINTED ON: 11/10/20 15:28 CT All edits/amendments must be made on the electronic document DICTATION DATE: 11/10/201526 PET GROOMER: [email or web address] 11/10/20 152 RPT#: [id number] DC DATE: STATUS: ADM IN [facility] [address] [place] [address] END OF REPORT
--- NOTE | 2020-11-10 16:53 | NUR ---
DC EDUCATION PROVIDED BOTH WRITTEN AND VERBAL. VERBALIZED UNDERSTANDING. DENIES FURTHER QUESTIONS. IV REMOVED FROM [facility] WITH TIP INTACT. PATIENT'S GRANDDAUGHTER ON WAY TO HOSPITAL TO HEEL CEMENTER MACHINE PATIENT. PORTABLE O2 IN ROOM AND ON PATIENT.
--- NOTE | 2020-11-10 16:56 | NUR ---
OT NOTE: PT COMPLETED BED MOBILITY TASKS WITH MIN A. PT COMPLETED UB HYGIENE TASKS WITH SETUP-MIN A. CL WITHIN REACH. [phone] JANIA ARREDONDO COTA
--- NOTE | 2020-11-10 17:28 | NUR ---
PATIENT DC HOME WITH ALL BELONGINGS.
--- NOTE | 2020-11-11 10:33 | MORECARE ---
CASE MANAGEMENT DISCHARGE SUMMARY PATIENT: UMM RUCKER UNIT: [id number] ADM DATE: 11/06/20 AGE: 75 : 47 SEX: F ROOM/BED: D.2220 AUTHOR: AILEEN,DOC PHYSICIAN: REFERRING PHYSICIAN: LAINE GALAN MD DATE OF SERVICE: 11/11/20 Case Management Discharge Planning Summary COMMENTS ENTERED DATE: 11/10/20 15:24 CT COMMENT TYPE: Discharge Planning REVIEWER: Anayeli Blandon is her PCP and she uses [facility] on [address] ENTERED DATE: 11/10/20 15:23 CT COMMENT TYPE: Discharge Planning REVIEWER: Anayeli Mon Patient did not think she needed home health, stated she cooks, cleans does everything she needs to do ENTERED DATE: 11/10/20 15:19 CT COMMENT TYPE: Discharge Planning REVIEWER: Anayeli Mon CM met with patient to complete initial dc planning assessment. CM educated patient on the CM role and verbal consent given by patient to complete assessment. Patient lives at home with her granddaughter where she stated she is independent with her care. At discharge patient plans to return home and feels this is a safe discharge. CM discussed availability of home health, rehab services, and medical equipment. Her daughter and granddaughter will be her wheelchair van driver home. [facility] will be delivering her portable o2 to the hospital. imm served and explained. She has a walker at home, but does not use it. Patient denied known discharge needs at this time. CM will continue to follow and will assist as needed with dc plans/needs. ENTERED DATE: 11/10/20 14:58 CT COMMENT TYPE: Discharge Planning REVIEWER: Anayeli Mon PER PATIENT'S NURSE SHE DOES NOT HAVE PORTABLE O2, SHE FAILED HER WALK TEST AND NEEDS PORTABLE O2. [facility] IS THE COMPANY WHERE SHE GOT HER HOME CONCENTRATOR. I CALLED [facility] AND SPOKE WITH LEONARDA, FAXED HER THE WALK TEST AND THE ORDER AND SHE WILL HAVE PORTABLE O2 DELIVERED TO THE HOSPITAL CM TO FOLLOW AND ASSIST NEEDED DCP REVIEW SUMMARY ANTICIPATED D/C DATE: EXPECTED LOS : 0 CASE STATUS: DCP Initiated INITIAL REVIEW: 11/06/2020 INITIAL REVIEWER: Anayeli Mon FINAL DISCHARGE DISPOSITION: 01 : Home or Self Care (Routine Discharge) FINAL REVIEWER: Anayeli Mon FINAL REVIEW DATE: 11/11/2020 DCP Focus Questions & Answers QUESTION: ANSWER : PATIENT: UMM RUCKER ENCOUNTER: [id number] MEDICAL RECORD#: [id number] ADMISSION DATE: 11/06/2020 DISCHARGE DATE: 11/10/2020 ATTENDING MD: LAINE LIAO : AGE: 75 MARITAL STATUS: D DC PLAN ID: [id number] FACILITY: [facility] PRINTED ON: 11/11/20 10:33 CT All edits/amendments must be made on the electronic document DICTATION DATE: 11/11/201032 COMPLAINT OPERATOR: YUSUF 11/11/201032 RPT#: [id number] DC DATE:11/10/20 STATUS: DIS IN [facility] [address] [place] [address] END OF REPORT
== END 2020-11-10 17:28 | disposition home or self-care (01) | DRG 872 ==
LOC: D.ER 23:21 → OBSVTIME 11-06 02:39 → D.MS 11-06 02:39
PROVIDERS: Family Medicine; Student in an Organized Health Care Education/Training Program; ADMIT Family Medicine Adult Medicine; ATTEND Family Medicine Adult Medicine
DX: A41.9 Sepsis, unspecified organism (principal); L03.311 Cellulitis of abdominal wall; N39.0 Urinary tract infection, site not specified; N17.9 Acute kidney failure, unspecified; E11.40 Type 2 diabetes mellitus with diabetic neuropathy, unspecified; I25.10 Atherosclerotic heart disease of native coronary artery without angina pectoris; I11.0 Hypertensive heart disease with heart failure; I50.9 Heart failure, unspecified; G89.29 Other chronic pain; M54.9 Dorsalgia, unspecified; E11.65 Type 2 diabetes mellitus with hyperglycemia; J44.9 Chronic obstructive pulmonary disease, unspecified; D64.9 Anemia, unspecified; F41.8 Other specified anxiety disorders; N28.1 Cyst of kidney, acquired; K21.9 Gastro-esophageal reflux disease without esophagitis